=== PATIENT | male | born 1965 | race Caucasian/White ===

== ENCOUNTER 2019-04-19 08:08 | Inpatient (IN) | payer BC ==
[~2019-04-19] VITALS: Ht 177.8 cm; Wt 129.2 kg
[2019-04-19] VITALS (12 sets, daily range): BP systolic 90–107; BP diastolic 30–61
[~2019-04-19 08:08] MED LIST: ASPI81TA52 PO; CARV25TA2 PO; DABI150C PO; DIGO250T2 PO; LEVO25TA2 PO; LISI-600 PO
[2019-04-19] MEDS ORDERED: normal saline 1000ML IV soln IVB ONE (08:35)
[2019-04-19 09:24] LABS: BASOPHILS % (AUTO) 0.4 % (0-1); EOSINOPHILS # (AUTO) 0.3 X10'3 (0-0.9); EOSINOPHILS % (AUTO) 5.5 % (0-6); HEMATOCRIT 25.6 % (42.0-52.0); HEMOGLOBIN 8.9 g/dl (14.0-17.9); LYMPHOCYTES # (AUTO) 0.4 X10'3 (1.1-4.8); LYMPHOCYTES % (AUTO) 6.4 % (21-51); MEAN CORPUSCULAR HEMOGLOBIN 32.6 PG (27.0-31.0); MEAN CORPUSCULAR HGB CONC 34.7 g/dL (33.0-36.5); MEAN PLATELET VOLUME 9.7 FL (7.4-10.4); MONOCYTES # (AUTO) 0.7 X10'3 (0-0.9); MONOCYTES % (AUTO) 10.8 % (2-12); NEUTROPHILS # (AUTO) 4.9 X10'3 (1.8-7.7); NEUTROPHILS % (AUTO) 76.9 % (42-75); PLATELET COUNT 111 X10'3 (140-440); RED BLOOD COUNT 2.73 X10'6 (4.70-6.10); RED CELL DISTRIBUTION WIDTH 13.9 % (11.5-14.5); WHITE BLOOD COUNT 6.3 X10'3 (4.5-11.0)
[2019-04-19 09:48] LABS: ALANINE AMINOTRANSFERASE 90 U/L (12-78); ALBUMIN 3.7 G/DL (3.4-5.0); ALBUMIN/GLOBULIN RATIO 1.1 (1.1-1.5); ALKALINE PHOSPHATASE 71 IU/L (46-116); ANION GAP 27 (8-16); ASPARTATE AMINO TRANSFERASE 77 U/L (10-37); BILIRUBIN,TOTAL 0.6 MG/DL (0.1-1.0); CALCIUM 9.9 MG/DL (8.5-10.1); CHLORIDE 89 MMOL/L (99-107); CREATININE 16.73 MG/DL (0.60-1.10); ETHANOL < 0.010 GM/DL (0.0-0.010); GLUCOSE 126 MG/DL (70-104); PARTIAL THROMBOPLASTIN TIME 68 SECONDS (22-32); POTASSIUM 5.5 MMOL/L (3.5-5.1); SODIUM 128 MMOL/L (135-145); eGFR 3 ML/MIN
[2019-04-19 09:52] LABS: BLOOD UREA NITROGEN 218 MG/DL (7-18)
[2019-04-19 09:53] LABS: TOTAL CARBON DIOXIDE 11.6 MMOL/L (24-32)
[2019-04-19 09:55] LABS: TOTAL CELLS COUNTED 100
[2019-04-19 09:56] LABS: PLATELET ESTIMATE DECREASED
[2019-04-19] MEDS ORDERED: pantoprazole IV 80 MG in normal saline 100ml IV soln 100 ML IV ONE (10:20)
[2019-04-19 10:24] LABS: CLARITY,URINE SLIGHTLY CLOUDY (Clear); COLOR,URINE YELLOW (Yellow); GLUCOSE, URINE NEGATIVE (Neg); KETONES,URINE TRACE mg/dl (Neg); LEUKOCYTE ESTERASE ,URINE NEGATIVE (Neg); NITRITES, URINE NEGATIVE (Neg); OCCULT BLOOD,URINE LARGE (Neg); PROTEIN,URINE 30 mg/dl (Neg); UROBILINOGEN,URINE 0.2 E.U/dL (0.2-1.0)
[2019-04-19] MEDS ORDERED: pantoprazole 40 MG vial IV ONE ×2 (10:30)
[2019-04-19 10:31] LABS: UA COLLECTION TYPE URINAL
[2019-04-19 10:37] LABS: RBC,URINE 50-100 /HPF (0-2)
[2019-04-19 10:43] LABS: BACTERIA,URINE NONE SEEN /HPF (Neg); SQUAMOUS EPITHELIAL CELL,UR FEW /LPF (FEW)
[2019-04-19 10:44] LABS: AMORPHOUS URATES 2+; CAL OXALATE CRYSTALS FEW /HPF (NEGATIVE); MUCUS STRANDS FEW /LPF (Neg); WBC CLUMPS,URINE FEW /HPF (NEGATIVE)
[2019-04-19] MEDS ORDERED: pantoprazole IV 40 MG in normal saline 100ml IV soln 100 ML IV ONE (11:00)
[2019-04-19] MEDS ORDERED: desmopressin inj. 25 MCG in normal saline 100ml IV soln 100 ML IV ONE (11:20)
[2019-04-19 11:36] LABS: ABG BASE EXCESS -14.3 mmol/L (-2.0-3.0); ABG HCO3 12.1 mmol/L (22.0-26.0); ABG OXYGEN SATURATION 96.7 % (95-98); ABG PCO2 (T) 30.1 mmHg (35.0-45.0); ABG PH (T) 7.223 (7.350-7.450); ABG PO2 (T) 107.4 mmHg (83-108); ALLEN'S TEST POSITIVE; FCOHb 0.3 % (0.5-1.5); FMetHb 0.2 % (0.3-1.12); FO2Hb 96.2 % (94-100); TOTAL HEMOGLOBIN 8.4 G/dl (14.0-17.9)
[2019-04-19 12:10] LABS: OCCULT BLOOD STOOL POSITIVE (Neg)
[2019-04-19] MEDS ORDERED: sodium bicarbonate (8.4%) inj. 150 MEQ in dextrose 5%-water 1,000 ML IV SCH (12:40)
[2019-04-19] MEDS ORDERED: sodium bicarbonate (8.4%) inj. 75 MEQ in dextrose 5% water 500ml 500 ML IV SCH (12:45)
--- NOTE | 2019-04-19 12:46 | NUR ---
CALLED PHARMACY ABOUT BICARB DRIP, STATED MAKING NOW WILL BRING DOWN
[2019-04-19] MEDS ORDERED: HYDROcodone/acetaminophen 5mg/325mg tablet PO PRN (13:05)
[2019-04-19] MEDS ORDERED: bisacodyl 10mg suppository rectal RC PRN (13:05)
[2019-04-19] MEDS ORDERED: HYDROmorphone inj. 0.5 MG/0.5 ML DISP.SYRIN IV PRN (13:05)
[2019-04-19] MEDS ORDERED: diphenhydrAMINE 25mg capsule PO PRN (13:05)
[2019-04-19] MEDS ORDERED: ondansetron/PF 4mg/2ml inj IV PRN (13:05)
[2019-04-19] MEDS ORDERED: acetaminophen 325mg tablet PO PRN (13:05)
[2019-04-19] MEDS ORDERED: albumin (human) 25% 100ml IV 100 ML IV PRN (13:10)
[2019-04-19] MEDS ORDERED: epoetin 20,000 units/ml inj IV ONE (13:10)
[2019-04-19] MEDS ORDERED: heparin 1,000 units/ml 10ml inj HE ONE ×2 (13:15)
[2019-04-19 13:44] LABS: HEMOGLOBIN A1C 5.5 % (4.5-6.2)
[2019-04-19] MEDS ORDERED: fentaNYL/PF 50MCG/1 ML 2ML syringe IV PRN (13:50)
[2019-04-19] MEDS: heparin 1,000 units/ml 10ml inj ICATH ONE ×2 (13:50→20:46)
[2019-04-19] MEDS ORDERED: LIDOcaine 1%/PF 5ML 10 MG/ML VIAL SQ ONE (13:50)
--- NOTE | 2019-04-19 13:55 | NUR ---
DR FULTON CALLED AND INFORMED PTS BP 81/41. RECEIVED VO TO ADMINISTER 1L NS IV BOLUS X1 NOW. CLARIFIED BICARB ORDER, BICARB GTT TO RUN AT 150ML/HR.
[2019-04-19] MEDS ORDERED: LIDOcaine 1%/PF 5ML 10 MG/ML VIAL ONE (13:57)
[2019-04-19] MEDS ORDERED: fentaNYL/PF 50MCG/1 ML 2ML syringe ONE (13:57)
[2019-04-19] MEDS ORDERED: heparin 1,000unit/ml 10ml vial 10 ML ONE (13:57)
--- NOTE | 2019-04-19 14:10 | NUR ---
ROJAS TIPTON GIVEN REPORT AND PT BEING TAKEN TO HAVE [facility] DIALYSIS PORT PLACED. RN AWARE PT TO RECEIVE 1L NS BOLUS AND FLUID CURRENTLY BEING HUNG.
[2019-04-19] MEDS ORDERED: NORepinephrine 8mg/ 250ml NS 250 ML IV SCH (14:25)
[2019-04-19] MEDS: sodium bicarbonate (8.4%) inj. 75 MEQ in dextrose 5% water 500ml 500 ML IV SCH ×3 (15:00→22:30)
--- NOTE | 2019-04-19 15:20 | NUR ---
PT BED STATUS TO BE CHANGED TO ICU BED PER YAMILETHO DR. FULTON.
--- NOTE | 2019-04-19 16:20 | NUR ---
Patient arrived to ICU via ED gurney. Transferred to hospital bed with minimal assistance. Patient oriented to room and to call light. Monitoring initiated. Vital signs: HR 120, RR 28, 02 92% on 4L NC, BP 117/63 (81). Levophed at 0.14 mcg/kg/min. All immediate needs met at this time.
--- NOTE | 2019-04-19 18:20 | NUR ---
Patient in room ICU 2044. I have received report from michael kendrick and had the opportunity to ask questions and assume patient care.
[2019-04-19] MEDS ORDERED: CARV25TA2 PO (18:41)
[2019-04-19] MEDS ORDERED: LISI-600 PO (18:41)
[2019-04-19] MEDS ORDERED: DABI150C PO (18:41)
[2019-04-19] MEDS: docusate sod 100mg capsule PO SCH (19:03)
--- NOTE | 2019-04-19 20:00 | NUR ---
pt reports being fearful of dialysis, encouraged expression of feelings and validated his fears. educated pt on dialysis with dialysis nurse. pt verbalized understanding of feelings
--- NOTE | 2019-04-19 20:30 | NUR ---
dialysis nurse at bedside
[2019-04-19] MEDS ORDERED: dextrose 50%-water 50ml dispensing syringe IV PRN (22:45)
[2019-04-19] MEDS ORDERED: LORazepam 2 mg/ml vial IV PRN (22:45)
[2019-04-19] MEDS ORDERED: LORazepam 1 MG tablet PO PRN (22:45)
[2019-04-20] VITALS (18 sets, daily range): BP systolic 88–122; BP diastolic 41–74
[2019-04-20] MEDS: sodium bicarbonate (8.4%) inj. 75 MEQ in dextrose 5% water 500ml 500 ML IV SCH ×2 (02:19→05:48)
[2019-04-20 02:59] LABS: TOTAL PROTEIN,URINE RANDOM 124.6 MG/DL
[2019-04-20 04:28] LABS: UA EOSINOPHILS NO EOS /HPF
[2019-04-20 05:26] LABS: PARTIAL THROMBOPLASTIN TIME 54 SECONDS (22-32)
[2019-04-20 05:37] LABS: ALANINE AMINOTRANSFERASE 69 U/L (12-78); ALBUMIN/GLOBULIN RATIO 1.1 (1.1-1.5); ALKALINE PHOSPHATASE 63 IU/L (46-116); ANION GAP 13 (8-16); ASPARTATE AMINO TRANSFERASE 59 U/L (10-37); BILIRUBIN,TOTAL 0.5 MG/DL (0.1-1.0); BLOOD UREA NITROGEN 121 MG/DL (7-18); BUN/CREATININE RATIO 16.2 (5.4-32.0); CALCIUM 8.4 MG/DL (8.5-10.1); CHLORIDE 97 MMOL/L (99-107); CREATININE 7.49 MG/DL (0.60-1.10); GLUCOSE 132 MG/DL (70-104); MAGNESIUM 1.2 MG/DL (1.5-2.4); PHOSPHORUS 2.5 MG/DL (2.3-4.5); POTASSIUM 3.9 MMOL/L (3.5-5.1); SODIUM 135 MMOL/L (135-145); TOTAL PROTEIN 5.8 G/DL (6.4-8.2); eGFR 8 ML/MIN
[2019-04-20 05:39] LABS: BASOPHILS % (AUTO) 0.2 % (0-1); EOSINOPHILS # (AUTO) 0.1 X10'3 (0-0.9); EOSINOPHILS % (AUTO) 1.9 % (0-6); HEMOGLOBIN 7.4 g/dl (14.0-17.9); LYMPHOCYTES # (AUTO) 0.2 X10'3 (1.1-4.8); LYMPHOCYTES % (AUTO) 3.4 % (21-51); MEAN CORPUSCULAR HEMOGLOBIN 32.7 PG (27.0-31.0); MEAN CORPUSCULAR HGB CONC 35.8 g/dL (33.0-36.5); MEAN CORPUSCULAR VOLUME 91.2 FL (78-98); MEAN PLATELET VOLUME 8.8 FL (7.4-10.4); MONOCYTES # (AUTO) 0.6 X10'3 (0-0.9); MONOCYTES % (AUTO) 12.2 % (2-12); NEUTROPHILS # (AUTO) 4.3 X10'3 (1.8-7.7); NEUTROPHILS % (AUTO) 82.3 % (42-75); PLATELET COUNT 92 X10'3 (140-440); RED BLOOD COUNT 2.26 X10'6 (4.70-6.10); RED CELL DISTRIBUTION WIDTH 13.7 % (11.5-14.5); WHITE BLOOD COUNT 5.3 X10'3 (4.5-11.0)
[2019-04-20 05:51] LABS: HEMATOCRIT 20.6 % (42.0-52.0)
--- NOTE | 2019-04-20 06:23 | NUR ---
Report received from ROJAS Robles
[2019-04-20 06:53] LABS: NUCLEATED RED BLOOD CELLS 2 /100WBC (0-0); PLATELET ESTIMATE DECREASED; TOTAL CELLS COUNTED 100
[2019-04-20 06:54] LABS: ANISOCYTOSIS 1+; LARGE PLATELETS FEW; POLYCHROMASIA 1+
[2019-04-20 06:55] LABS: TOXIC GRANULATION 1+
[2019-04-20] MEDS: docusate sod 100mg capsule PO SCH ×2 (08:00→20:00)
[2019-04-20] MEDS: multivitamins, therapeutics tablet PO SCH (09:16)
[2019-04-20] MEDS: pantoprazole 40mg Tablet.DR PO SCH (09:16)
[2019-04-20] MEDS: thiamine 100mg tablet PO SCH (09:16)
[2019-04-20] MEDS: folic acid 1mg tablet PO SCH (09:17)
[2019-04-20] MEDS: normal saline 1000ml 1,000 ML IV SCH ×2 (09:18→22:43)
[2019-04-20 10:16] LABS: HEMOGLOBIN 7.3 g/dl (14.0-17.9); MEAN CORPUSCULAR HEMOGLOBIN 32.5 PG (27.0-31.0); MEAN CORPUSCULAR HGB CONC 35.5 g/dL (33.0-36.5); MEAN CORPUSCULAR VOLUME 91.6 FL (78-98); MEAN PLATELET VOLUME 9.7 FL (7.4-10.4); PLATELET COUNT 104 X10'3 (140-440); RED BLOOD COUNT 2.24 X10'6 (4.70-6.10); RED CELL DISTRIBUTION WIDTH 13.9 % (11.5-14.5); WHITE BLOOD COUNT 6.2 X10'3 (4.5-11.0)
[2019-04-20 10:21] LABS: HEMATOCRIT 20.6 % (42.0-52.0)
[2019-04-20 13:01] LABS: % IRON SATURATION 11 % (11-46); IRON 25 UG/DL (53-167); TOTAL IRON BINDING CAPACITY 235 UG/DL (259-388)
[2019-04-20 13:02] LABS: FERRITIN 1455 NG/ML (26-388)
--- NOTE | 2019-04-20 15:00 | NUR ---
Patient in room PCU 3012. I have received report from Leesa and had the opportunity to ask questions and assume patient care. Patient hooked up to tele, vital signs obtained and 2 RN skin check completed.
--- NOTE | 2019-04-20 15:08 | NUR ---
Transferred patient to room 3012B via wheelchair with banquet coordinator and all belongings.
[2019-04-20 15:56] LABS: HEMOGLOBIN 7.4 g/dl (14.0-17.9); MEAN CORPUSCULAR HEMOGLOBIN 32.4 PG (27.0-31.0); MEAN CORPUSCULAR HGB CONC 34.6 g/dL (33.0-36.5); MEAN CORPUSCULAR VOLUME 93.4 FL (78-98); MEAN PLATELET VOLUME 8.6 FL (7.4-10.4); PLATELET COUNT 94 X10'3 (140-440); RED BLOOD COUNT 2.29 X10'6 (4.70-6.10); WHITE BLOOD COUNT 6.5 X10'3 (4.5-11.0)
[2019-04-20 16:02] LABS: HEMATOCRIT 21.4 % (42.0-52.0)
--- NOTE | 2019-04-20 18:00 | NUR ---
Patient in room PCU 3012. I have received report from ROJAS Douglas and had the opportunity to ask questions and assume patient care.
--- NOTE | 2019-04-20 19:15 | NUR ---
Problems reprioritized. Patient report given, questions answered & plan of care reviewed with Sigrid.
[2019-04-20] MEDS: nystatin 15 GM powder TP SCH ×2 (20:00→21:00)
[2019-04-20] MEDS: dabigatran 150mg capsule PO SCH (23:01)
[2019-04-21] VITALS (20 sets, daily range): BP systolic 92–222; BP diastolic 48–192
[2019-04-21] MEDS ORDERED: amiodarone 150mg/dext, iso-os 100 ML IV ONE (04:15)
[2019-04-21] MEDS: amiodarone/D5 360MG/200ML BAG 200 ML IV SCH ×4 (04:48→21:00)
[2019-04-21] MEDS: ipratropium/albuterol 3ml nebule NEB PRN ×3 (05:04→15:50)
[2019-04-21 05:14] LABS: BASOPHILS % (AUTO) 0.4 % (0-1); EOSINOPHILS % (AUTO) 1.1 % (0-6); HEMATOCRIT 23.1 % (42.0-52.0); LYMPHOCYTES # (AUTO) 0.1 X10'3 (1.1-4.8); LYMPHOCYTES % (AUTO) 2.6 % (21-51); MEAN CORPUSCULAR HEMOGLOBIN 32.5 PG (27.0-31.0); MEAN CORPUSCULAR HGB CONC 34.6 g/dL (33.0-36.5); MEAN CORPUSCULAR VOLUME 93.9 FL (78-98); MEAN PLATELET VOLUME 8.6 FL (7.4-10.4); MONOCYTES # (AUTO) 0.1 X10'3 (0-0.9); MONOCYTES % (AUTO) 2.5 % (2-12); NEUTROPHILS # (AUTO) 3.2 X10'3 (1.8-7.7); NEUTROPHILS % (AUTO) 93.4 % (42-75); PLATELET COUNT 102 X10'3 (140-440); RED BLOOD COUNT 2.46 X10'6 (4.70-6.10); RED CELL DISTRIBUTION WIDTH 13.8 % (11.5-14.5); WHITE BLOOD COUNT 3.4 X10'3 (4.5-11.0)
[2019-04-21 05:16] LABS: PARTIAL THROMBOPLASTIN TIME 51 SECONDS (22-32)
[2019-04-21 05:28] LABS: ALANINE AMINOTRANSFERASE 69 U/L (12-78); ALBUMIN 3.4 G/DL (3.4-5.0); ALKALINE PHOSPHATASE 77 IU/L (46-116); ANION GAP 12 (8-16); ASPARTATE AMINO TRANSFERASE 62 U/L (10-37); BILIRUBIN,TOTAL 0.6 MG/DL (0.1-1.0); BLOOD UREA NITROGEN 123 MG/DL (7-18); BUN/CREATININE RATIO 39.4 (5.4-32.0); CALCIUM 7.9 MG/DL (8.5-10.1); CHLORIDE 102 MMOL/L (99-107); CREATININE 3.12 MG/DL (0.60-1.10); GLUCOSE 101 MG/DL (70-104); PHOSPHORUS 1.9 MG/DL (2.3-4.5); POTASSIUM 4.2 MMOL/L (3.5-5.1); SODIUM 143 MMOL/L (135-145); TOTAL CARBON DIOXIDE 29.1 MMOL/L (24-32); TOTAL PROTEIN 6.7 G/DL (6.4-8.2); TROPONIN I < 0.04 NG/ML (0.0-0.05); eGFR 21 ML/MIN
[2019-04-21 05:41] LABS: MAGNESIUM 0.9 MG/DL (1.5-2.4)
--- NOTE | 2019-04-21 05:41 | NUR ---
Patient appears to be withdrawling from [id number]. Ativan started. Rashaun fletcher.
[2019-04-21] MEDS ORDERED: magnesium 2GM in 50ml NS 50 ML IV ONE (05:50)
--- NOTE | 2019-04-21 06:23 | NUR ---
Problems reprioritized. Patient report given, questions answered & plan of care reviewed with ROJAS Lucas.
--- NOTE | 2019-04-21 06:30 | NUR ---
Patient in room ICU 2038. I have received report from ROJAS Matta and had the opportunity to ask questions and assume patient care. Patient sitting in chair at bedside. Patient has tremors, alert and oriented x3. Sitter at bedside. will continue to monitor.
[2019-04-21] MEDS: LORazepam 2 mg/ml vial IV PRN ×3 (06:39→12:30)
[2019-04-21 07:21] LABS: NUCLEATED RED BLOOD CELLS 8 /100WBC (0-0); TOTAL CELLS COUNTED 100
[2019-04-21 07:22] LABS: PLATELET ESTIMATE DECREASED
[2019-04-21 07:25] LABS: ROULEAUX 1+
[2019-04-21 07:26] LABS: POLYCHROMASIA 1+
[2019-04-21] MEDS: pantoprazole 40mg Tablet.DR PO SCH (07:30)
[2019-04-21] MEDS ORDERED: haloperidol 5mg tablet PO PRN (07:50)
[2019-04-21] MEDS ORDERED: LORazepam 2 mg/ml vial IV PRN (07:50)
[2019-04-21] MEDS ORDERED: sodium phosphate inj. 15 MMOL in dextrose 5%-water 150 ML IV PRN (07:50)
[2019-04-21] MEDS ORDERED: magnesium Cl slow-release 64mg tablet PO PRN (07:50)
[2019-04-21] MEDS ORDERED: potassium CL 10mEq/100ml bag 100 ML IV PRN (07:50)
[2019-04-21] MEDS ORDERED: potassium Cl 20 mEq SR tablet PO PRN ×2 (07:50)
[2019-04-21] MEDS ORDERED: sodium phosphate inj. 30 MMOL in dextrose 5%-water 250 ML IV PRN (07:50)
[2019-04-21] MEDS ORDERED: haloperidol lactate 5mg/ml inj IM PRN (07:50)
--- NOTE | 2019-04-21 07:53 | NUR ---
Spoke with Dr. Perkins via telephone, new orders to add Moderate ETOH protocol and Potassium, Mg and Phos replacement protocol.
[2019-04-21] MEDS: folic acid 1mg tablet PO SCH (08:00)
[2019-04-21] MEDS: docusate sod 100mg capsule PO SCH ×2 (08:00→20:00)
[2019-04-21] MEDS: multivitamins, therapeutics tablet PO SCH (08:00)
[2019-04-21] MEDS: thiamine 100mg tablet PO SCH (08:00)
[2019-04-21] MEDS: dabigatran 150mg capsule PO SCH ×2 (08:00→20:00)
[2019-04-21] MEDS: nystatin 15 GM powder TP SCH ×3 (08:00→21:00)
--- NOTE | 2019-04-21 08:30 | NUR ---
Patient wasn't able to take morning medications PO due to his condition changing. Unable to follow commands, and on CPAP. Primary nurse is informed.
[2019-04-21] MEDS: magnesium 4gm in 100ml NS 100 ML IV PRN (09:57)
--- NOTE | 2019-04-21 10:45 | NUR ---
Axillary temperature reported of 102.8. Patient found to be hypotensive, increase work of breathing. Patient restless, attempting to removed CPAP mask. Rapid response called.
--- NOTE | 2019-04-21 10:50 | NUR ---
Rapid response called. Patient hypotensive, and increased work of breathing.
[2019-04-21 11:10] LABS: ABG BASE EXCESS 0.2 mmol/L (-2.0-3.0); ABG HCO3 24.9 mmol/L (22.0-26.0); ABG OXYGEN SATURATION 93.8 % (95-98); ABG PCO2 (T) 40.4 mmHg (35.0-45.0); ABG PH (T) 7.407 (7.350-7.450); ABG PO2 (T) 72.8 mmHg (83-108); ALLEN'S TEST POSITIVE; FCOHb 0.1 % (0.5-1.5); FLOW 4 L/min; FMetHb 0.1 % (0.3-1.12); FO2Hb 93.6 % (94-100); TOTAL HEMOGLOBIN 7.6 G/dl (14.0-17.9)
[2019-04-21] MEDS ORDERED: furosemide 40mg/4ml inj IV ONE (11:10)
[2019-04-21] MEDS ORDERED: furosemide 40mg/4ml inj ONE (11:40)
--- NOTE | 2019-04-21 11:44 | NUR ---
Please disregard dialysis charges for 04/20. Dialysis was performed on 04/19 but posted after midnight. Addendum: 04/21/19 at 1145 by Samantha Grimes RN Amended: Links added.
--- NOTE | 2019-04-21 12:19 | NUR ---
Please disregard charges entered 04/206. The charge should have been documented on 04/19 the date of actual treatment. Addendum: 04/21/19 at 1221 by Samantha Grimes RN Amended: Links added.
[2019-04-21 12:41] LABS: ABG BASE EXCESS 4.4 mmol/L (-2.0-3.0); ABG HCO3 27.9 mmol/L (22.0-26.0); ABG OXYGEN SATURATION 98.2 % (95-98); ABG PH (T) 7.496 (7.350-7.450); ABG PO2 (T) 131.9 mmHg (83-108); ALLEN'S TEST Yes; FCOHb 0.3 % (0.5-1.5); FMetHb 0.2 % (0.3-1.12); FO2Hb 97.7 % (94-100); RESPIRATORY RATE 24 b/min; TOTAL HEMOGLOBIN 7.2 G/dl (14.0-17.9)
[2019-04-21] MEDS ORDERED: vancomycin/NS 1 GM ADD-VANTAGE 250 ML IV ONE (13:00)
[2019-04-21] MEDS ORDERED: acetaminophen 650mg rectal suppository RC PRN (13:00)
[2019-04-21] MEDS: dexmedetomidin/NS 400mcg/100ml 100 ML IV SCH (13:31)
[2019-04-21] MEDS ORDERED: midazolam 2 mg/2 ml injection ONE (13:54)
[2019-04-21] MEDS ORDERED: NORepinephrine 8mg/ 250ml NS 250 ML IV ONE (13:55)
[2019-04-21] MEDS ORDERED: MIDAZolam 5mg/ml 2ml vial IV ONE ×2 (13:55→14:15)
[2019-04-21] MEDS ORDERED: etomidate 2mg/ml inj. IV ONE (14:15)
[2019-04-21] MEDS: midazolam 100mg in NS 100ml 100 ML IV PRN (14:15)
[2019-04-21] MEDS ORDERED: rocuronium 10mg/ml inj IV ONE (14:15)
[2019-04-21] MEDS ORDERED: ipratropium/albuterol 3ml nebule NEB PRN (14:20)
[2019-04-21 14:26] LABS: ABG BASE EXCESS 0.1 mmol/L (-2.0-3.0); ABG OXYGEN SATURATION 91.1 % (95-98); ABG PCO2 (T) 49.5 mmHg (35.0-45.0); ABG PH (T) 7.339 (7.350-7.450); ABG PO2 (T) 66.5 mmHg (83-108); ALLEN'S TEST POSITIVE; FCOHb 0.3 % (0.5-1.5); FMetHb 0.2 % (0.3-1.12); FO2Hb 90.6 % (94-100); TOTAL HEMOGLOBIN 7.8 G/dl (14.0-17.9)
[2019-04-21] MEDS: normal saline 1000ml 1,000 ML IV SCH (14:35)
[2019-04-21] MEDS: FENTANYL-0.9 % NACL/PF 100 ML IV PRN ×2 (14:40→17:58)
[2019-04-21] MEDS: NORepinephrine 8mg/ 250ml NS 250 ML IV SCH (14:40)
[2019-04-21] MEDS: piperacillin/tazo 3.375gm/50ml 50 ML IV SCH (15:29)
[2019-04-21] MEDS ORDERED: methylPREDNISolone sod succ 125mg/2ml vial IV ONE (15:30)
[2019-04-21] MEDS: iron sucrose complex injection 200 MG in normal saline 100ml IV soln 100 ML IV SCH (16:22)
[2019-04-21] MEDS: ipratropium/albuterol 3ml nebule NEB SCH ×2 (19:40→23:49)
[2019-04-21] MEDS: methylPREDNISolone sod succ 125mg/2ml vial IV SCH (21:00)
[2019-04-21] MEDS ORDERED: warfarin 4mg tablet PO ONE (22:00)
[2019-04-22] VITALS (24 sets, daily range): BP systolic 103–135; BP diastolic 72–93
[2019-04-22] MEDS: piperacillin/tazo 3.375gm/50ml 50 ML IV SCH ×3 (01:12→16:59)
[2019-04-22] MEDS: dexmedetomidin/NS 400mcg/100ml 100 ML IV SCH ×3 (01:12→19:58)
[2019-04-22] MEDS: NORepinephrine 8mg/ 250ml NS 250 ML IV SCH ×3 (02:09→23:07)
[2019-04-22] MEDS: methylPREDNISolone sod succ 125mg/2ml vial IV SCH ×4 (03:00→21:12)
[2019-04-22] MEDS ORDERED: dextrose ORAL solution 15 GM/59 ML bottle PO PRN (03:10)
[2019-04-22] MEDS ORDERED: glucagon, human recombinant 1mg kit SUBCUT PRN (03:10)
[2019-04-22] MEDS: ipratropium/albuterol 3ml nebule NEB SCH ×6 (03:45→23:12)
[2019-04-22 04:06] LABS: ABG BASE EXCESS -0.7 mmol/L (-2.0-3.0); ABG HCO3 23.6 mmol/L (22.0-26.0); ABG OXYGEN SATURATION 98.5 % (95-98); ABG PCO2 (T) 38.2 mmHg (35.0-45.0); ABG PH (T) 7.411 (7.350-7.450); ABG PO2 (T) 136.7 mmHg (83-108); ALLEN'S TEST POSITIVE; FCOHb 0.3 % (0.5-1.5); FO2Hb 98.2 % (94-100); PATIENT TEMPERATURE 37.6; PEEP 5 cm H2O; RESPIRATORY RATE 18 b/min; TIDAL VOLUME 500 mL; TOTAL HEMOGLOBIN 8.7 G/dl (14.0-17.9)
[2019-04-22] MEDS: FENTANYL-0.9 % NACL/PF 100 ML IV PRN (04:20)
[2019-04-22] MEDS: normal saline 1000ml 1,000 ML IV SCH ×2 (04:20→19:56)
[2019-04-22] MEDS: amiodarone/D5 360MG/200ML BAG 200 ML IV SCH ×4 (04:29→22:41)
[2019-04-22 05:38] LABS: BASOPHILS % (AUTO) 0.1 % (0-1); EOSINOPHILS % (AUTO) 0.2 % (0-6); HEMATOCRIT 23.1 % (42.0-52.0); HEMOGLOBIN 7.8 g/dl (14.0-17.9); LYMPHOCYTES # (AUTO) 0.2 X10'3 (1.1-4.8); LYMPHOCYTES % (AUTO) 4.7 % (21-51); MEAN CORPUSCULAR HEMOGLOBIN 32.2 PG (27.0-31.0); MEAN CORPUSCULAR HGB CONC 33.7 g/dL (33.0-36.5); MEAN CORPUSCULAR VOLUME 95.6 FL (78-98); MEAN PLATELET VOLUME 8.6 FL (7.4-10.4); MONOCYTES # (AUTO) 0.3 X10'3 (0-0.9); MONOCYTES % (AUTO) 7.4 % (2-12); NEUTROPHILS # (AUTO) 3.8 X10'3 (1.8-7.7); NEUTROPHILS % (AUTO) 87.6 % (42-75); PLATELET COUNT 78 X10'3 (140-440); RED BLOOD COUNT 2.41 X10'6 (4.70-6.10); RED CELL DISTRIBUTION WIDTH 14.3 % (11.5-14.5); WHITE BLOOD COUNT 4.3 X10'3 (4.5-11.0)
[2019-04-22 05:50] LABS: PARTIAL THROMBOPLASTIN TIME 57 SECONDS (22-32)
[2019-04-22 06:04] LABS: ALANINE AMINOTRANSFERASE 69 U/L (12-78); ALBUMIN 2.6 G/DL (3.4-5.0); ALBUMIN/GLOBULIN RATIO 0.8 (1.1-1.5); ALKALINE PHOSPHATASE 64 IU/L (46-116); ANION GAP 15 (8-16); ASPARTATE AMINO TRANSFERASE 245 U/L (10-37); BILIRUBIN,TOTAL 0.8 MG/DL (0.1-1.0); BLOOD UREA NITROGEN 127 MG/DL (7-18); BUN/CREATININE RATIO 42.3 (5.4-32.0); CALCIUM 7.2 MG/DL (8.5-10.1); CHLORIDE 103 MMOL/L (99-107); GLUCOSE 207 MG/DL (70-104); MAGNESIUM 1.4 MG/DL (1.5-2.4); PHOSPHORUS 4.5 MG/DL (2.3-4.5); POTASSIUM 4.5 MMOL/L (3.5-5.1); SODIUM 141 MMOL/L (135-145); TOTAL CARBON DIOXIDE 23.3 MMOL/L (24-32); TOTAL PROTEIN 5.9 G/DL (6.4-8.2); eGFR 22 ML/MIN
[2019-04-22 06:47] LABS: NUCLEATED RED BLOOD CELLS 1 /100WBC (0-0); PLATELET ESTIMATE DECREASED; TOTAL CELLS COUNTED 100
[2019-04-22 06:48] LABS: POLYCHROMASIA 1+; ROULEAUX 1+
--- NOTE | 2019-04-22 06:50 | NUR ---
Report received from ROJAS Arteaga.
[2019-04-22] MEDS: docusate sod 100mg capsule PO SCH (08:00)
[2019-04-22] MEDS: folic acid 1mg tablet PO SCH (08:37)
[2019-04-22] MEDS: thiamine 100mg tablet PO SCH (08:38)
[2019-04-22] MEDS: multivitamins, therapeutics tablet PO SCH (08:39)
[2019-04-22] MEDS: pantoprazole 40mg Tablet.DR PO SCH (08:39)
[2019-04-22] MEDS: insulin regular, human vial - multi-dose SQ SCH ×3 (08:53→21:28)
[2019-04-22 09:49] LABS: A/G RATIO 1.1 (0.7-1.7); ALBUMIN 3.2 g/dL (2.9-4.4); BETA GLOBULIN 0.9 g/dL (0.7-1.3); GAMMA GLOBULIN 0.6 g/dL (0.4-1.8); GLOBULIN, TOTAL 2.8 g/dL (2.2-3.9); M-SPIKE Not Observed g/dL (Not Observed)
[2019-04-22] MEDS: nystatin 15 GM powder TP SCH ×3 (12:34→21:22)
[2019-04-22] MEDS: iron sucrose complex injection 200 MG in normal saline 100ml IV soln 100 ML IV SCH (12:34)
--- NOTE | 2019-04-22 14:19 | NUR ---
TF consult: Pt intubated and sedated d/t hypoxia and DTs d/t EtOH. Pt admitted with SUELLEN, possibly sepsis per , s/p 1 hemodialysis treatment with no further plans to dialyze. Pt admitted with Creatinine of 16.7 now trending down to 3. Pt potassium now WNL. LBM 04/20. Per gas appliance installer to begin TF today. TF recs below. Recommendations: 1. Continuous TF with Vital High Protein to begin at 20ml/hr, advance by 20ml q 8 hours as tolerated to goal of 85ml/hr to provide 2040ml total volume, 2040 justin, 178 g protein, 3264 mg potassium and 1713 ml free water. 2. Additional water flush 60ml q 6 hours 3. PALB q 4. Daily weights 5. bowel care as needed Addendum: 04/22/19 at 1420 by Wing Dmitry RAMIREZ Amended: Links added. Addendum: 04/22/19 at [address] agree with note
[2019-04-22] MEDS: midazolam 100mg in NS 100ml 100 ML IV PRN (14:27)
[2019-04-22] MEDS: enoxaparin 60mg/0.6ml syringe SUBCUT SCH (17:38)
[2019-04-22] MEDS ORDERED: acetaminophen 325mg tablet OGT PRN (18:01)
[2019-04-22] MEDS ORDERED: dextrose ORAL solution 15 GM/59 ML bottle OGT PRN (18:01)
[2019-04-22] MEDS ORDERED: diphenhydrAMINE 25 MG/10 ML UD oral solution OGT PRN (18:03)
[2019-04-22] MEDS ORDERED: docusate sodium 100mg/10ml UD cup OGT SCH (18:03)
[2019-04-22] MEDS ORDERED: haloperidol 5mg tablet OGT PRN (18:05)
[2019-04-22] MEDS ORDERED: POTASSIUM BICARB 20meq eff tab 20 MEQ TABLET.EFF OGT PRN ×2 (18:07)
[2019-04-22] MEDS: mineral oil/petrolatum ophthal oint EACHEYE SCH (19:57)
[2019-04-22] MEDS ORDERED: warfarin 4mg tablet OGT ONE (21:00)
[2019-04-22] MEDS: insulin glargine (Lantus) pen - multi-dose SQ SCH (21:29)
[2019-04-23] VITALS (24 sets, daily range): BP systolic 90–136; BP diastolic 58–96
[2019-04-23] MEDS: mineral oil/petrolatum ophthal oint EACHEYE SCH ×4 (02:00→20:00)
[2019-04-23] MEDS: ipratropium/albuterol 3ml nebule NEB SCH ×6 (02:59→23:10)
[2019-04-23] MEDS: insulin regular, human vial - multi-dose SQ SCH (03:50)
[2019-04-23] MEDS: methylPREDNISolone sod succ 125mg/2ml vial IV SCH ×4 (03:53→20:30)
--- NOTE | 2019-04-23 04:00 | NUR ---
Midnight Zosyn dose missed. Asked pharmacy if it could be given and retimed, but pharmacist unable to retime.
[2019-04-23 04:15] LABS: BASOPHILS % (AUTO) 0.1 % (0-1); EOSINOPHILS % (AUTO) 0.1 % (0-6); HEMATOCRIT 23.8 % (42.0-52.0); LYMPHOCYTES # (AUTO) 0.2 X10'3 (1.1-4.8); LYMPHOCYTES % (AUTO) 3.2 % (21-51); MEAN CORPUSCULAR HEMOGLOBIN 31.9 PG (27.0-31.0); MEAN CORPUSCULAR HGB CONC 33.7 g/dL (33.0-36.5); MEAN CORPUSCULAR VOLUME 94.8 FL (78-98); MEAN PLATELET VOLUME 9.3 FL (7.4-10.4); MONOCYTES # (AUTO) 0.5 X10'3 (0-0.9); MONOCYTES % (AUTO) 7.6 % (2-12); NEUTROPHILS # (AUTO) 6.3 X10'3 (1.8-7.7); PLATELET COUNT 98 X10'3 (140-440); RED BLOOD COUNT 2.51 X10'6 (4.70-6.10); RED CELL DISTRIBUTION WIDTH 14.9 % (11.5-14.5); WHITE BLOOD COUNT 7.1 X10'3 (4.5-11.0)
[2019-04-23 04:23] LABS: PARTIAL THROMBOPLASTIN TIME 53 SECONDS (22-32)
[2019-04-23 04:30] LABS: ALANINE AMINOTRANSFERASE 76 U/L (12-78); ALBUMIN 2.4 G/DL (3.4-5.0); ALBUMIN/GLOBULIN RATIO 0.7 (1.1-1.5); ALKALINE PHOSPHATASE 56 IU/L (46-116); ANION GAP 14 (8-16); ASPARTATE AMINO TRANSFERASE 187 U/L (10-37); BILIRUBIN,TOTAL 0.7 MG/DL (0.1-1.0); BLOOD UREA NITROGEN 117 MG/DL (7-18); BUN/CREATININE RATIO 46.1 (5.4-32.0); CALCIUM 6.7 MG/DL (8.5-10.1); CHLORIDE 106 MMOL/L (99-107); CREATININE 2.54 MG/DL (0.60-1.10); GLUCOSE 178 MG/DL (70-104); MAGNESIUM 1.3 MG/DL (1.5-2.4); PHOSPHORUS 3.7 MG/DL (2.3-4.5); POTASSIUM 3.9 MMOL/L (3.5-5.1); SODIUM 147 MMOL/L (135-145); TOTAL CARBON DIOXIDE 26.8 MMOL/L (24-32); TOTAL PROTEIN 5.7 G/DL (6.4-8.2); eGFR 27 ML/MIN
[2019-04-23 04:31] LABS: ABG HCO3 20.8 mmol/L (22.0-26.0); ABG OXYGEN SATURATION 97.8 % (95-98); ABG PH (T) 7.553 (7.350-7.450); ABG PO2 (T) 96.2 mmHg (83-108); ALLEN'S TEST POSITIVE; FCOHb 0.3 % (0.5-1.5); FMetHb 0.3 % (0.3-1.12); FO2Hb 97.2 % (94-100); PATIENT TEMPERATURE 36.4; RESPIRATORY RATE 18 b/min; TIDAL VOLUME 500 mL; TOTAL HEMOGLOBIN 8.6 G/dl (14.0-17.9)
[2019-04-23 04:57] LABS: NUCLEATED RED BLOOD CELLS 3 /100WBC (0-0); TOTAL CELLS COUNTED 100
[2019-04-23 04:58] LABS: HYPOCHROMASIA 1+; PLATELET ESTIMATE DECREASED; POLYCHROMASIA 1+
[2019-04-23] MEDS ORDERED: LORazepam 1 MG tablet OGT PRN ×2 (05:20→07:50)
[2019-04-23] MEDS ORDERED: LORazepam 2 mg/ml vial IV PRN ×2 (05:20→07:50)
--- NOTE | 2019-04-23 07:30 | NUR ---
Called Clinton ZURITA to notify that I was unable to keep cuff inflated well. Patient only getting every other tidal volume. Clinton ZURITA stated that the patient's cuff had blown. Called Dr. Padilla and received order to extubate patient and call ED physician if needs intubated. Extubated patient at this time and he tolerated well. Placed patient on 1 L NC and breathing well at this time. Will continue to monitor.
--- NOTE | 2019-04-23 07:41 | NUR ---
I WAS CALLED BY NURSE TO ASSESS CUFF LEAK. PT. FOUND ON CPAP. CUFF WAS NOT MAINTAINING PRESSURE. MANUALLY KEPT CUFF INFLATED WHILE NURSE CONSULTED WITH DR. MORALES. SPO2 MAINTAINED AND VOLUMES DELIVERED WHILE MANUALLY INFLATING WITH MANOMETER. DR. FULTON APPROVED EXTUBATION. PT CURRENTLY ON NC 3 LITERS PER MINUTE. PT HAS WARD AND WILL PUT ON VENTURI MASK WITH HIGH FLOW. BS COARSE, VS WNL. Addendum: 04/23/19 at 0744 by Christiano [address]on RT Amended: Links added.
[2019-04-23] MEDS: normal saline 1000ml 1,000 ML IV SCH ×2 (07:55→22:13)
[2019-04-23] MEDS: enoxaparin 60mg/0.6ml syringe SUBCUT SCH (08:00)
[2019-04-23] MEDS: dabigatran 150mg capsule PO SCH ×2 (08:00→21:53)
[2019-04-23] MEDS: piperacillin/tazo 3.375gm/50ml 50 ML IV SCH ×4 (08:13→23:42)
[2019-04-23] MEDS: thiamine inj. 100 MG, folic acid inj. 2 MG in normal saline 100ml IV soln 100 ML IV SCH (08:19)
[2019-04-23] MEDS: iron sucrose complex injection 200 MG in normal saline 100ml IV soln 100 ML IV SCH (08:54)
[2019-04-23] MEDS: amiodarone/D5 360MG/200ML BAG 200 ML IV SCH ×4 (09:24→22:57)
[2019-04-23] MEDS: NORepinephrine 8mg/ 250ml NS 250 ML IV SCH ×2 (09:36→20:05)
[2019-04-23] MEDS: MVI, adult No.4 with vit. K 10 ML in dextrose 5% water 500ml 500 ML IV SCH ×2 (10:19)
[2019-04-23] MEDS ORDERED: acetaminophen 325mg tablet PO PRN (11:50)
[2019-04-23] MEDS ORDERED: POTASSIUM BICARB 20meq eff tab 20 MEQ TABLET.EFF PO PRN ×2 (11:51→11:52)
[2019-04-23] MEDS ORDERED: dextrose ORAL solution 15 GM/59 ML bottle PO PRN (11:51)
[2019-04-23] MEDS ORDERED: diphenhydrAMINE 25 MG/10 ML UD oral solution PO PRN (11:51)
[2019-04-23] MEDS ORDERED: LORazepam 1 MG tablet PO PRN ×2 (11:54→12:14)
[2019-04-23] MEDS ORDERED: haloperidol 5mg tablet PO PRN (11:54)
[2019-04-23] MEDS ORDERED: dabigatran 150mg capsule PO ONE (12:10)
[2019-04-23] MEDS: pantoprazole 40mg Tablet.DR PO SCH (12:16)
[2019-04-23 12:18] LABS: ALANINE AMINOTRANSFERASE 73 U/L (12-78); ALBUMIN 2.4 G/DL (3.4-5.0); ALBUMIN/GLOBULIN RATIO 0.7 (1.1-1.5); ALKALINE PHOSPHATASE 62 IU/L (46-116); ANION GAP 11 (8-16); ASPARTATE AMINO TRANSFERASE 166 U/L (10-37); BILIRUBIN,TOTAL 0.7 MG/DL (0.1-1.0); BLOOD UREA NITROGEN 106 MG/DL (7-18); BUN/CREATININE RATIO 45.9 (5.4-32.0); CALCIUM 6.9 MG/DL (8.5-10.1); CHLORIDE 108 MMOL/L (99-107); CREATININE 2.31 MG/DL (0.60-1.10); GLUCOSE 201 MG/DL (70-104); MAGNESIUM 1.3 MG/DL (1.5-2.4); PHOSPHORUS 3.4 MG/DL (2.3-4.5); POTASSIUM 3.9 MMOL/L (3.5-5.1); SODIUM 145 MMOL/L (135-145); TOTAL CARBON DIOXIDE 26.5 MMOL/L (24-32); TOTAL PROTEIN 5.9 G/DL (6.4-8.2); eGFR 30 ML/MIN
--- NOTE | 2019-04-23 12:19 | NUR ---
Reassessment: Patient was extubated to Bipap, BSS completed this morning by who recommends pureed food and thin liquids. Pt was previously intubated and sedated d/t hypoxia and DTs d/t EtOH; admitted with SUELLEN, possibly sepsis per MD, s/p 1 hemodialysis treatment with no further plans to dialyze. Pt admitted with Creatinine of 16.7 now trending down to 2.54. LBM 04/20. Will continue to follow. Recommendations: 1. Continue pureed diet per ST recs 2. monitor PO intake 3. PALB q / 4. wt per rx 5. bowel care as needed Addendum: 04/23/19 at [address] Amended: Links added.
[2019-04-23] MEDS: nystatin 15 GM powder TP SCH ×3 (12:41→20:30)
[2019-04-23] MEDS: magnesium 4gm in 100ml NS 100 ML IV PRN (13:17)
[2019-04-23] MEDS: insulin Lispro (HumaLOG) vial - multi-dose SQ SCH (13:47)
[2019-04-23] MEDS: magnesium 2GM in 50ml NS 50 ML IV PRN (16:31)
--- NOTE | 2019-04-23 18:00 | NUR ---
Patient in room ICU 2038. I have received report from ROJAS Lackey and had the opportunity to ask questions and assume patient care.
--- NOTE | 2019-04-23 18:30 | NUR ---
Problems reprioritized. Patient report given, questions answered & plan of care reviewed with Gi XIE.
[2019-04-23] MEDS: docusate sodium 100mg/10ml UD cup PO SCH (20:30)
[2019-04-23] MEDS: dexmedetomidin/NS 400mcg/100ml 100 ML IV SCH (20:33)
[2019-04-23] MEDS: insulin glargine (Lantus) pen - multi-dose SQ SCH (21:58)
[2019-04-24] VITALS (24 sets, daily range): BP systolic 107–150; BP diastolic 67–115
[2019-04-24] MEDS: mineral oil/petrolatum ophthal oint EACHEYE SCH (02:00)
[2019-04-24] MEDS: ipratropium/albuterol 3ml nebule NEB SCH ×6 (03:11→23:14)
[2019-04-24] MEDS: methylPREDNISolone sod succ 125mg/2ml vial IV SCH ×3 (04:24→14:35)
[2019-04-24] MEDS: amiodarone/D5 360MG/200ML BAG 200 ML IV SCH ×2 (05:01→08:13)
[2019-04-24 05:23] LABS: PARTIAL THROMBOPLASTIN TIME 47 SECONDS (22-32)
[2019-04-24 05:29] LABS: ALANINE AMINOTRANSFERASE 66 U/L (12-78); ALBUMIN 2.4 G/DL (3.4-5.0); ALBUMIN/GLOBULIN RATIO 0.8 (1.1-1.5); ALKALINE PHOSPHATASE 67 IU/L (46-116); ANION GAP 12 (8-16); ASPARTATE AMINO TRANSFERASE 121 U/L (10-37); BILIRUBIN,TOTAL 0.7 MG/DL (0.1-1.0); BLOOD UREA NITROGEN 93 MG/DL (7-18); BUN/CREATININE RATIO 44.3 (5.4-32.0); CALCIUM 6.9 MG/DL (8.5-10.1); CHLORIDE 106 MMOL/L (99-107); GLUCOSE 168 MG/DL (70-104); MAGNESIUM 1.7 MG/DL (1.5-2.4); PHOSPHORUS 3.2 MG/DL (2.3-4.5); POTASSIUM 3.5 MMOL/L (3.5-5.1); SODIUM 144 MMOL/L (135-145); TOTAL CARBON DIOXIDE 26.1 MMOL/L (24-32); TOTAL PROTEIN 5.6 G/DL (6.4-8.2); eGFR 33 ML/MIN
[2019-04-24 05:43] LABS: BASOPHILS % (AUTO) 0.1 % (0-1); EOSINOPHILS % (AUTO) 0.1 % (0-6); HEMATOCRIT 22.7 % (42.0-52.0); HEMOGLOBIN 7.5 g/dl (14.0-17.9); LYMPHOCYTES # (AUTO) 0.3 X10'3 (1.1-4.8); LYMPHOCYTES % (AUTO) 2.7 % (21-51); MEAN CORPUSCULAR HEMOGLOBIN 31.3 PG (27.0-31.0); MEAN CORPUSCULAR HGB CONC 32.9 g/dL (33.0-36.5); MEAN CORPUSCULAR VOLUME 95.2 FL (78-98); MEAN PLATELET VOLUME 9.8 FL (7.4-10.4); MONOCYTES # (AUTO) 0.8 X10'3 (0-0.9); MONOCYTES % (AUTO) 6.3 % (2-12); NEUTROPHILS # (AUTO) 11.3 X10'3 (1.8-7.7); NEUTROPHILS % (AUTO) 90.8 % (42-75); PLATELET COUNT 118 X10'3 (140-440); RED BLOOD COUNT 2.39 X10'6 (4.70-6.10); RED CELL DISTRIBUTION WIDTH 15.1 % (11.5-14.5); WHITE BLOOD COUNT 12.4 X10'3 (4.5-11.0)
--- NOTE | 2019-04-24 06:00 | NUR ---
Patient in room ICU 2038. I have received report from ROJAS Angelo and had the opportunity to ask questions and assume patient care.
--- NOTE | 2019-04-24 06:31 | NUR ---
Problems reprioritized. Patient report given, questions answered & plan of care reviewed with Braeden Zhao.
[2019-04-24 06:53] LABS: ANISOCYTOSIS 1+; HYPOCHROMASIA 1+; NUCLEATED RED BLOOD CELLS 5 /100WBC (0-0); PLATELET ESTIMATE DECREASED; POLYCHROMASIA 1+; TOTAL CELLS COUNTED 100
--- NOTE | 2019-04-24 08:00 | NUR ---
Pt had a late tray at 08:00
[2019-04-24] MEDS: piperacillin/tazo 3.375gm/50ml 50 ML IV SCH (08:15)
[2019-04-24] MEDS: dabigatran 150mg capsule PO SCH ×2 (08:24→20:00)
[2019-04-24] MEDS: docusate sodium 100mg/10ml UD cup PO SCH ×2 (08:24→20:00)
[2019-04-24] MEDS: nystatin 15 GM powder TP SCH ×3 (08:25→21:00)
[2019-04-24] MEDS: pantoprazole 40mg Tablet.DR PO SCH (08:26)
[2019-04-24] MEDS: iron sucrose complex injection 200 MG in normal saline 100ml IV soln 100 ML IV SCH (08:26)
[2019-04-24] MEDS: thiamine inj. 100 MG, folic acid inj. 2 MG in normal saline 100ml IV soln 100 ML IV SCH (08:27)
[2019-04-24] MEDS: MVI, adult No.4 with vit. K 10 ML in dextrose 5% water 500ml 500 ML IV SCH ×2 (08:27)
--- NOTE | 2019-04-24 09:45 | NUR ---
Pt finished breakfast at 09:45.
[2019-04-24] MEDS ORDERED: VANCOMYCIN LEVEL IV ONE (10:30)
[2019-04-24] MEDS: insulin Lispro (HumaLOG) vial - multi-dose SQ SCH (10:33)
--- NOTE | 2019-04-24 11:26 | NUR ---
Called Angel Luis at Pharmacy, okay to give next dose of Vanco
[2019-04-24] MEDS: normal saline 1000ml 1,000 ML IV SCH (13:09)
--- NOTE | 2019-04-24 13:40 | NUR ---
Pt finished lunch just now. Will wait till 2 pm to administer insulin since AM insulin was delayed
--- NOTE | 2019-04-24 14:43 | NUR ---
Called Dr. Price regarding pt being tachy, wanted to know if home meds (lisinopril and coreg) can be resumed, explained those two meds were withheld due to poor rental function. Dr. Price miguel he would take care of it.
[2019-04-24] MEDS ORDERED: carVEDilol 3.125mg tablet PO ONE ×2 (17:35→17:45)
[2019-04-24] MEDS ORDERED: carVEDilol 3.125mg tablet PO SCH (17:35)
--- NOTE | 2019-04-24 17:45 | NUR ---
Problems reprioritized. Patient report given, questions answered & plan of care reviewed with ROJAS Madera.
--- NOTE | 2019-04-24 17:48 | NUR ---
Received report from ANALYTICAL TECHROJAS Zhao
--- NOTE | 2019-04-24 17:54 | NUR ---
Run Melani bhardwaj till 18:55
--- NOTE | 2019-04-24 18:11 | NUR ---
Problems reprioritized. Patient report given, questions answered & plan of care reviewed with ROJAS Monique.
--- NOTE | 2019-04-24 18:42 | NUR ---
Patient in room ICU 2038. I have received report from Sandy XIE and had the opportunity to ask questions and assume patient care.
[2019-04-24] MEDS: carVEDilol 3.125mg tablet PO SCH (20:29)
[2019-04-24] MEDS: insulin glargine (Lantus) pen - multi-dose SQ SCH (20:32)
[2019-04-24] MEDS ORDERED: vancomycin/NS 1 GM ADD-VANTAGE 250 ML IV SCH (23:00)
[2019-04-25] VITALS (24 sets, daily range): BP systolic 101–146; BP diastolic 61–103
[2019-04-25 02:33] LABS: ALBUMIN 2.7 G/DL (3.4-5.0); ANION GAP 13 (8-16); BLOOD UREA NITROGEN 81 MG/DL (7-18); CALCIUM 7.2 MG/DL (8.5-10.1); CHLORIDE 107 MMOL/L (99-107); CREATININE 1.93 MG/DL (0.60-1.10); GLUCOSE 157 MG/DL (70-104); POTASSIUM 3.4 MMOL/L (3.5-5.1); SODIUM 144 MMOL/L (135-145); TOTAL CARBON DIOXIDE 24.5 MMOL/L (24-32); eGFR 37 ML/MIN
[2019-04-25 02:40] LABS: BASOPHILS % (AUTO) 0 % (0-1); EOSINOPHILS % (AUTO) 0 % (0-6); HEMATOCRIT 24.9 % (42.0-52.0); HEMOGLOBIN 8.1 g/dl (14.0-17.9); LYMPHOCYTES % (AUTO) 7.4 % (21-51); MEAN CORPUSCULAR HEMOGLOBIN 31.3 PG (27.0-31.0); MEAN CORPUSCULAR HGB CONC 32.5 g/dL (33.0-36.5); MEAN CORPUSCULAR VOLUME 96.3 FL (78-98); MEAN PLATELET VOLUME 9.7 FL (7.4-10.4); MONOCYTES # (AUTO) 0.9 X10'3 (0-0.9); MONOCYTES % (AUTO) 6.8 % (2-12); NEUTROPHILS # (AUTO) 11.9 X10'3 (1.8-7.7); NEUTROPHILS % (AUTO) 85.8 % (42-75); PLATELET COUNT 138 X10'3 (140-440); RED BLOOD COUNT 2.59 X10'6 (4.70-6.10); RED CELL DISTRIBUTION WIDTH 15.1 % (11.5-14.5); WHITE BLOOD COUNT 13.9 X10'3 (4.5-11.0)
[2019-04-25] MEDS: ipratropium/albuterol 3ml nebule NEB SCH ×6 (03:02→23:03)
[2019-04-25 03:48] LABS: ANISOCYTOSIS 1+; NUCLEATED RED BLOOD CELLS 8 /100WBC (0-0); PLATELET ESTIMATE DECREASED; POLYCHROMASIA 1+; TOTAL CELLS COUNTED 100
[2019-04-25] MEDS ORDERED: LORazepam 2 mg/ml vial IV PRN ×2 (05:20→07:50)
[2019-04-25] MEDS ORDERED: LORazepam 1 MG tablet PO PRN ×2 (05:20→07:50)
--- NOTE | 2019-04-25 06:30 | NUR ---
Patient in room ICU 2038. I have received report from ROJAS Cordova and had the opportunity to ask questions and assume patient care. Patient up to bedside commode, HR in 130s-150s, a-fib w/RVR, otherwise VSS, no acute distress, will continue to monitor
[2019-04-25] MEDS: docusate sodium 100mg/10ml UD cup PO SCH ×2 (08:00→20:00)
[2019-04-25] MEDS: dabigatran 150mg capsule PO SCH ×2 (08:17→19:45)
[2019-04-25] MEDS: carVEDilol 3.125mg tablet PO SCH ×2 (08:17→19:46)
[2019-04-25] MEDS: iron sucrose complex injection 200 MG in normal saline 100ml IV soln 100 ML IV SCH (08:17)
[2019-04-25] MEDS: nystatin 15 GM powder TP SCH ×3 (08:17→21:29)
[2019-04-25] MEDS: pantoprazole 40mg Tablet.DR PO SCH (08:17)
--- NOTE | 2019-04-25 09:00 | NUR ---
Patient HR spikes to 180s when he gets up to the bedside commode, patient states he does not feel more short of breath than normal during the spike. K is low but no replacement ordered, will inform MD.
[2019-04-25] MEDS: insulin Lispro (HumaLOG) vial - multi-dose SQ SCH (09:31)
--- NOTE | 2019-04-25 09:53 | NUR ---
informed Dr. Price about patient's high heart rates and low K with no replacement orders, he stated he will look at the chart before determining new orders.
[2019-04-25] MEDS ORDERED: potassium Cl 20 mEq SR tablet PO STA (12:19)
[2019-04-25] MEDS: amiodarone 200mg tablet PO SCH (16:04)
--- NOTE | 2019-04-25 16:06 | NUR ---
PATIENT HR MORE FREQUENTLY EXCEEDING 150 WITH MULTIPLE RUNS OF 5-7 BEAT V-TACH AND MULTIFOCAL PVCS. SPOKE WITH CRN, NEW ORDER FOR AMIODARONE 200MG PO HAD BEEN PUT IN TO START TONIGHT, GAVE IT EARLY, WILL CONTINUE TO MONITOR THE PATIENT AND INFORM MD IF FURTHER INTERVENTION IS REQUIRED
[2019-04-25] MEDS ORDERED: carVEDilol 3.125mg tablet PO SCH (16:55)
--- NOTE | 2019-04-25 18:24 | NUR ---
Problems reprioritized. Patient report given, questions answered & plan of care reviewed with ROJAS Monique.
--- NOTE | 2019-04-25 18:32 | NUR ---
Patient in room ICU 2038. I have received report from Leticia XIE and had the opportunity to ask questions and assume patient care.
[2019-04-25] MEDS: insulin glargine (Lantus) pen - multi-dose SQ SCH (21:00)
[2019-04-26] VITALS (23 sets, daily range): BP systolic 87–127; BP diastolic 51–92
--- NOTE | 2019-04-26 02:16 | NUR ---
Pt unable to sleep, complains of discomfort in abdomen and slight nausea, pt offered pain medication and antiemetic, pt refused both, pt adamant about no more medications at this time. Pt was given a snack, and educated about medication indications.
[2019-04-26] MEDS: ipratropium/albuterol 3ml nebule NEB SCH ×4 (03:00→15:00)
[2019-04-26 05:27] LABS: BASOPHILS % (AUTO) 0.1 % (0-1); EOSINOPHILS % (AUTO) 0.2 % (0-6); HEMATOCRIT 23.1 % (42.0-52.0); HEMOGLOBIN 7.7 g/dl (14.0-17.9); LYMPHOCYTES # (AUTO) 0.7 X10'3 (1.1-4.8); LYMPHOCYTES % (AUTO) 6.4 % (21-51); MEAN CORPUSCULAR HEMOGLOBIN 32.1 PG (27.0-31.0); MEAN CORPUSCULAR HGB CONC 33.4 g/dL (33.0-36.5); MEAN CORPUSCULAR VOLUME 96.1 FL (78-98); MEAN PLATELET VOLUME 9.4 FL (7.4-10.4); MONOCYTES # (AUTO) 0.9 X10'3 (0-0.9); MONOCYTES % (AUTO) 8.4 % (2-12); NEUTROPHILS % (AUTO) 84.9 % (42-75); PLATELET COUNT 120 X10'3 (140-440); RED CELL DISTRIBUTION WIDTH 15.3 % (11.5-14.5); WHITE BLOOD COUNT 10.6 X10'3 (4.5-11.0)
--- NOTE | 2019-04-26 06:00 | NUR ---
Patient in room ICU 2038. I have received report from Kayden XIE and had the opportunity to ask questions and assume patient care. Patient resting in bed, HR 120s, afib RVR, with possible runs on vtach reported. Will continue to monitor.
[2019-04-26 06:03] LABS: ALBUMIN 2.6 G/DL (3.4-5.0); ANION GAP 13 (8-16); BLOOD UREA NITROGEN 62 MG/DL (7-18); BUN/CREATININE RATIO 42.8 (5.4-32.0); CALCIUM 7.6 MG/DL (8.5-10.1); CHLORIDE 111 MMOL/L (99-107); CREATININE 1.45 MG/DL (0.60-1.10); GLUCOSE 109 MG/DL (70-104); POTASSIUM 3.4 MMOL/L (3.5-5.1); SODIUM 149 MMOL/L (135-145); TOTAL CARBON DIOXIDE 24.8 MMOL/L (24-32); eGFR 51 ML/MIN
[2019-04-26 06:21] LABS: ANISOCYTOSIS 1+; NUCLEATED RED BLOOD CELLS 2 /100WBC (0-0); PLATELET ESTIMATE DECREASED; POLYCHROMASIA FEW; TOTAL CELLS COUNTED 100
[2019-04-26] MEDS: iron sucrose complex injection 200 MG in normal saline 100ml IV soln 100 ML IV SCH (07:34)
[2019-04-26] MEDS: docusate sodium 100mg/10ml UD cup PO SCH ×2 (07:34→20:00)
[2019-04-26] MEDS: pantoprazole 40mg Tablet.DR PO SCH (07:34)
[2019-04-26] MEDS: nystatin 15 GM powder TP SCH ×3 (07:35→21:19)
[2019-04-26] MEDS: carVEDilol 3.125mg tablet PO SCH (07:35)
[2019-04-26] MEDS: dabigatran 150mg capsule PO SCH ×2 (07:35→20:00)
[2019-04-26] MEDS: amiodarone 200mg tablet PO SCH (07:35)
[2019-04-26] MEDS ORDERED: carVEDilol 12.5mg tablet PO SCH (09:05)
--- NOTE | 2019-04-26 09:15 | NUR ---
Spoke with Dr. Becerril regarding patient's heart rate and rhythm, being afib RVR and asymptomatic v-tach with rate up to 180s. New order obtained to increase Coreg. Will continue to monitor.
[2019-04-26] MEDS ORDERED: VANCOMYCIN LEVEL IV ONE (10:30)
--- NOTE | 2019-04-26 11:17 | NUR ---
Patient c/o nausea but refusing any medications at this time. Patient sitting at the bedside, will continue to monitor. Patient asking for a drink with carbonation, faxed down for diet rootbeer. Will continue to monitor.
[2019-04-26] MEDS ORDERED: potassium Cl 20 mEq SR tablet PO STA (12:43)
--- NOTE | 2019-04-26 12:59 | NUR ---
Spoke with Argelia Vicente, who is putting new orders in at this time. Will continue to monitor.
[2019-04-26 13:25] LABS: MAGNESIUM 1.1 MG/DL (1.5-2.4)
[2019-04-26] MEDS: magnesium 2GM in 50ml NS 50 ML IV PRN (13:34)
--- NOTE | 2019-04-26 13:56 | NUR ---
Reassessment: PO intake improved to 75-100% PO intake of carb controlled diet. Magnesium lab is low, is receiving IV replacement. Pt was previously intubated and sedated d/t hypoxia and DTs d/t EtOH; admitted with SUELLEN, possibly sepsis per , s/p 1 hemodialysis treatment with no further plans to dialyze. Will continue to follow. Recommendations: 1. Continue carb controlled diet 2. wt per rx 5. bowel care as needed Addendum: 04/26/19 at [address] Amended: Links added.
--- NOTE | 2019-04-26 18:00 | NUR ---
Patient in room ICU 2038. I have received report from ROJAS Lucas and had the opportunity to ask questions and assume patient care..
--- NOTE | 2019-04-26 18:34 | NUR ---
Problems reprioritized. Patient report given, questions answered & plan of care reviewed with Sigrid XIE. Patient astable at transfer of care.
[2019-04-26] MEDS: levalbuterol 0.63mg/3ml nebule IH SCH ×2 (20:00→22:52)
[2019-04-26] MEDS ORDERED: carVEDilol 3.125mg tablet PO SCH (20:00)
[2019-04-26] MEDS: insulin glargine (Lantus) pen - multi-dose SQ SCH (21:00)
--- NOTE | 2019-04-26 21:12 | NUR ---
2038 Moris Stallings: He states he is willing to try the new medication for his breathing tx. Thanks, Sigrid [phone]
--- NOTE | 2019-04-26 21:13 | NUR ---
Patient is extremely anxious and resistive to care, with some education he is compliant but he is not happy about it. He is refusing his spo2 sat monitor.
[2019-04-26] MEDS: carVEDilol 12.5mg tablet PO SCH (21:27)
--- NOTE | 2019-04-26 22:31 | NUR ---
Pt refusing O2 sat. Addendum: 04/26/19 at 2232 by Sigrid Adam RN Amended: Links added.
[2019-04-27] VITALS (22 sets, daily range): BP systolic 86–136; BP diastolic 45–96
[2019-04-27] MEDS: levalbuterol 0.63mg/3ml nebule IH SCH ×6 (02:27→23:23)
[2019-04-27 02:39] LABS: BASOPHILS % (AUTO) 0 % (0-1); EOSINOPHILS # (AUTO) 0.2 X10'3 (0-0.9); EOSINOPHILS % (AUTO) 2.3 % (0-6); LYMPHOCYTES # (AUTO) 0.4 X10'3 (1.1-4.8); LYMPHOCYTES % (AUTO) 6.4 % (21-51); MEAN CORPUSCULAR HEMOGLOBIN 31.7 PG (27.0-31.0); MEAN CORPUSCULAR HGB CONC 32.6 g/dL (33.0-36.5); MEAN CORPUSCULAR VOLUME 97.3 FL (78-98); MEAN PLATELET VOLUME 9.6 FL (7.4-10.4); MONOCYTES # (AUTO) 0.5 X10'3 (0-0.9); MONOCYTES % (AUTO) 6.9 % (2-12); NEUTROPHILS # (AUTO) 5.8 X10'3 (1.8-7.7); NEUTROPHILS % (AUTO) 84.4 % (42-75); PLATELET COUNT 105 X10'3 (140-440); RED BLOOD COUNT 2.22 X10'6 (4.70-6.10); WHITE BLOOD COUNT 6.8 X10'3 (4.5-11.0)
[2019-04-27 03:01] LABS: ALANINE AMINOTRANSFERASE 55 U/L (12-78); ALBUMIN 2.4 G/DL (3.4-5.0); ALBUMIN/GLOBULIN RATIO 0.8 (1.1-1.5); ALKALINE PHOSPHATASE 60 IU/L (46-116); ANION GAP 6 (8-16); ASPARTATE AMINO TRANSFERASE 72 U/L (10-37); BILIRUBIN,TOTAL 0.8 MG/DL (0.1-1.0); BLOOD UREA NITROGEN 49 MG/DL (7-18); BUN/CREATININE RATIO 35.8 (5.4-32.0); CALCIUM 7.5 MG/DL (8.5-10.1); CHLORIDE 109 MMOL/L (99-107); CREATININE 1.37 MG/DL (0.60-1.10); GLUCOSE 90 MG/DL (70-104); MAGNESIUM 1.2 MG/DL (1.5-2.4); POTASSIUM 3.4 MMOL/L (3.5-5.1); SODIUM 145 MMOL/L (135-145); TOTAL PROTEIN 5.4 G/DL (6.4-8.2); eGFR 55 ML/MIN
[2019-04-27] MEDS: magnesium 2GM in 50ml NS 50 ML IV PRN (03:08)
[2019-04-27 03:10] LABS: HEMATOCRIT 21.6 % (42.0-52.0)
[2019-04-27 05:54] LABS: NUCLEATED RED BLOOD CELLS 2 /100WBC (0-0); TOTAL CELLS COUNTED 100
[2019-04-27 05:55] LABS: ANISOCYTOSIS 1+; LARGE PLATELETS FEW; PLATELET ESTIMATE DECREASED
[2019-04-27 05:56] LABS: MONOCYTES % (MANUAL) 50 % (2-12); NEUTROPHILS % (MANUAL) 90 % (42-75)
[2019-04-27] MEDS ORDERED: potassium Cl 20mEq/100mL bag 100 ML IV PRN (06:05)
[2019-04-27] MEDS ORDERED: potassium Cl 20 mEq SR tablet PO PRN (06:05)
[2019-04-27] MEDS ORDERED: potassium CL 10mEq/100ml bag 100 ML IV PRN (06:05)
--- NOTE | 2019-04-27 06:10 | NUR ---
Problems reprioritized. Patient report given, questions answered & plan of care reviewed with Braeden Yun.
[2019-04-27] MEDS: docusate sodium 100mg/10ml UD cup PO SCH ×2 (07:40→20:00)
[2019-04-27] MEDS: dabigatran 150mg capsule PO SCH ×2 (08:44→20:09)
[2019-04-27] MEDS: pantoprazole 40mg Tablet.DR PO SCH (08:44)
[2019-04-27] MEDS: nystatin 15 GM powder TP SCH ×3 (08:44→20:04)
[2019-04-27] MEDS: carVEDilol 12.5mg tablet PO SCH ×2 (08:45→20:00)
[2019-04-27] MEDS: iron sucrose complex injection 200 MG in normal saline 100ml IV soln 100 ML IV SCH (08:46)
[2019-04-27] MEDS: potassium Cl 20 mEq SR tablet PO PRN ×3 (08:59→20:18)
--- NOTE | 2019-04-27 10:23 | NUR ---
Report received from off going RN.
[2019-04-27 10:36] LABS: HEMATOCRIT 25.2 % (42.0-52.0); HEMOGLOBIN 8.4 g/dl (14.0-17.9); MEAN CORPUSCULAR HEMOGLOBIN 32.1 PG (27.0-31.0); MEAN CORPUSCULAR HGB CONC 33.4 g/dL (33.0-36.5); MEAN CORPUSCULAR VOLUME 96.1 FL (78-98); MEAN PLATELET VOLUME 9.2 FL (7.4-10.4); PLATELET COUNT 118 X10'3 (140-440); RED BLOOD COUNT 2.62 X10'6 (4.70-6.10); WHITE BLOOD COUNT 8.3 X10'3 (4.5-11.0)
--- NOTE | 2019-04-27 13:10 | NUR ---
PRESSURE ULCER EDUCATION: DEFINITION: A pressure ulcer is an area of skin that breaks down when you stay in one position too long. The constant pressure against the skin reduces the blood flow to that area and the affected tissue dies. CAUSES: "Being bedridden or in a wheelchair "Fragile skin "Having a chronic condition, such as diabetes or vascular disease "Inability to move certain parts of your body without assistance "Older age "Incontinence of urine or stool SYMPTOMS: "A reddened area that DOES NOT turn white when pressed on - this can be the beginning of a pressure ulcer "A blister, deep sore or a crater - these can be advanced pressure ulcers FIRST AID: "Relieve the pressure on this area "Keep the area clean and dry "Call your primary doctor if you see any of the above symptoms "DO NOT massage the area "DO NOT use a donut shaped or ring shaped pillow- these actually interfere with the blood flow and cause complications PREVENTION: "Check for pressure ulcers everyday "Change position at least every two hours to relieve pressure "Use items that help relieve pressure- pillows, sheepskin, foam padding, and powders. "Keep skin clean and dry "Eat healthy well balanced meals "Exercise daily IF YOU SEE ANY OF THESE SYMPTOMS WHILE IN THE HOSPITAL - TELL YOUR NURSE IMMEDIATELY. IF YOU SEE ANY OF THESE SYMPTOMS WHILE AT HOME OR HAVE ANY QUESTIONS OR CONCERNS ABOUT PRESSURE ULCERS - CALL YOUR PRIMARY DOCTOR IMMEDIATELY. Addendum: 04/27/19 at 1311 by Santa Hoskins RN Amended: Links added.
--- NOTE | 2019-04-27 14:48 | NUR ---
Received report from ICU nurse Armand XIE.
--- NOTE | 2019-04-27 15:41 | NUR ---
Patient arrived to room 350B, VSS. Patient oriented to room, call light, bed controls.
--- NOTE | 2019-04-27 18:12 | NUR ---
Problems reprioritized. Patient report given, questions answered & plan of care reviewed with Dante XIE.
[2019-04-27] MEDS: insulin glargine (Lantus) pen - multi-dose SQ SCH (21:00)
[2019-04-28] VITALS: BP 123/73
[2019-04-28 05:48] LABS: MAGNESIUM 1.3 MG/DL (1.5-2.4); POTASSIUM 4.1 MMOL/L (3.5-5.1)
--- NOTE | 2019-04-28 06:05 | NUR ---
Patient in room KRISTINE 350. I have received report from Dante XIE and had the opportunity to ask questions and assume patient care.
--- NOTE | 2019-04-28 06:20 | NUR ---
Problems reprioritized. Patient report given, questions answered & plan of care reviewed with VADIM. Addendum: 04/28/19 at 0621 by Rudolph Palomares RN Amended: Links added.
[2019-04-28] MEDS: levalbuterol 0.63mg/3ml nebule IH SCH ×6 (07:03→23:25)
[2019-04-28 07:19] VITALS: BP 104/74
[2019-04-28] MEDS: docusate sodium 100mg/10ml UD cup PO SCH ×3 (08:00→20:08)
[2019-04-28] MEDS: dabigatran 150mg capsule PO SCH (08:42)
[2019-04-28] MEDS: carVEDilol 12.5mg tablet PO SCH ×2 (08:42→20:03)
[2019-04-28] MEDS: nystatin 15 GM powder TP SCH ×3 (08:42→20:02)
[2019-04-28] MEDS: iron sucrose complex injection 200 MG in normal saline 100ml IV soln 100 ML IV SCH (08:42)
[2019-04-28] MEDS: pantoprazole 40mg Tablet.DR PO SCH (08:42)
[2019-04-28] MEDS: magnesium Cl slow-release 64mg tablet PO PRN ×2 (10:21→23:33)
[2019-04-28 10:34] LABS: BASOPHILS % (AUTO) 0.1 % (0-1); EOSINOPHILS # (AUTO) 0.2 X10'3 (0-0.9); EOSINOPHILS % (AUTO) 2.6 % (0-6); HEMATOCRIT 25.8 % (42.0-52.0); HEMOGLOBIN 8.5 g/dl (14.0-17.9); LYMPHOCYTES # (AUTO) 0.5 X10'3 (1.1-4.8); LYMPHOCYTES % (AUTO) 6.4 % (21-51); MEAN CORPUSCULAR HEMOGLOBIN 31.9 PG (27.0-31.0); MEAN CORPUSCULAR HGB CONC 33.1 g/dL (33.0-36.5); MEAN CORPUSCULAR VOLUME 96.4 FL (78-98); MONOCYTES # (AUTO) 0.4 X10'3 (0-0.9); MONOCYTES % (AUTO) 5.4 % (2-12); NEUTROPHILS # (AUTO) 6.6 X10'3 (1.8-7.7); NEUTROPHILS % (AUTO) 85.5 % (42-75); PLATELET COUNT 118 X10'3 (140-440); RED BLOOD COUNT 2.67 X10'6 (4.70-6.10); RED CELL DISTRIBUTION WIDTH 17.1 % (11.5-14.5); WHITE BLOOD COUNT 7.7 X10'3 (4.5-11.0)
[2019-04-28 10:46] LABS: ALANINE AMINOTRANSFERASE 52 U/L (12-78); ALBUMIN 2.6 G/DL (3.4-5.0); ALBUMIN/GLOBULIN RATIO 0.8 (1.1-1.5); ALKALINE PHOSPHATASE 75 IU/L (46-116); ANION GAP 8 (8-16); ASPARTATE AMINO TRANSFERASE 67 U/L (10-37); BLOOD UREA NITROGEN 38 MG/DL (7-18); BUN/CREATININE RATIO 28.8 (5.4-32.0); CALCIUM 8.3 MG/DL (8.5-10.1); CHLORIDE 107 MMOL/L (99-107); CREATININE 1.32 MG/DL (0.60-1.10); GLUCOSE 124 MG/DL (70-104); PHOSPHORUS 3.1 MG/DL (2.3-4.5); POTASSIUM 3.9 MMOL/L (3.5-5.1); SODIUM 141 MMOL/L (135-145); TOTAL CARBON DIOXIDE 26.3 MMOL/L (24-32); eGFR 57 ML/MIN
[2019-04-28 11:14] VITALS: BP 113/64
--- NOTE | 2019-04-28 18:30 | NUR ---
Problems reprioritized. Patient report given, questions answered & plan of care reviewed with Shaneka XIE and Mayda RN.
[2019-04-28 19:46] VITALS: BP 105/52
[2019-04-28] MEDS ORDERED: magnesium Cl slow-release 64mg tablet PO SCH (20:00)
[2019-04-28] MEDS: insulin glargine (Lantus) pen - multi-dose SQ SCH (21:00)
[2019-04-28 21:09] LABS: HIV ANTIBODY 1&2 RAPID NON-REACTIVE (Neg)
[2019-04-29] VITALS (14 sets, daily range): BP systolic 96–152; BP diastolic 51–89
[2019-04-29] MEDS: normal saline 1000ml 1,000 ML IV SCH ×3 (01:45→21:25)
[2019-04-29] MEDS: levalbuterol 0.63mg/3ml nebule IH SCH ×6 (03:21→23:33)
[2019-04-29 05:27] LABS: BASOPHILS % (AUTO) 0.1 % (0-1); EOSINOPHILS # (AUTO) 0.3 X10'3 (0-0.9); EOSINOPHILS % (AUTO) 4.3 % (0-6); HEMATOCRIT 24.1 % (42.0-52.0); HEMOGLOBIN 8.1 g/dl (14.0-17.9); LYMPHOCYTES # (AUTO) 0.5 X10'3 (1.1-4.8); LYMPHOCYTES % (AUTO) 8.3 % (21-51); MEAN CORPUSCULAR HEMOGLOBIN 32.3 PG (27.0-31.0); MEAN CORPUSCULAR HGB CONC 33.4 g/dL (33.0-36.5); MEAN CORPUSCULAR VOLUME 96.6 FL (78-98); MEAN PLATELET VOLUME 9.1 FL (7.4-10.4); MONOCYTES # (AUTO) 0.4 X10'3 (0-0.9); MONOCYTES % (AUTO) 6.8 % (2-12); NEUTROPHILS # (AUTO) 4.9 X10'3 (1.8-7.7); NEUTROPHILS % (AUTO) 80.5 % (42-75); PLATELET COUNT 102 X10'3 (140-440); RED CELL DISTRIBUTION WIDTH 16.8 % (11.5-14.5); WHITE BLOOD COUNT 6.1 X10'3 (4.5-11.0)
[2019-04-29 05:57] LABS: ALANINE AMINOTRANSFERASE 43 U/L (12-78); ALBUMIN 2.4 G/DL (3.4-5.0); ALBUMIN/GLOBULIN RATIO 0.7 (1.1-1.5); ALKALINE PHOSPHATASE 64 IU/L (46-116); ANION GAP 7 (8-16); ASPARTATE AMINO TRANSFERASE 53 U/L (10-37); BLOOD UREA NITROGEN 31 MG/DL (7-18); BUN/CREATININE RATIO 26.3 (5.4-32.0); CALCIUM 8.2 MG/DL (8.5-10.1); CHLORIDE 108 MMOL/L (99-107); CREATININE 1.18 MG/DL (0.60-1.10); GLUCOSE 99 MG/DL (70-104); MAGNESIUM 1.2 MG/DL (1.5-2.4); PHOSPHORUS 3.5 MG/DL (2.3-4.5); POTASSIUM 3.9 MMOL/L (3.5-5.1); SODIUM 139 MMOL/L (135-145); TOTAL CARBON DIOXIDE 24.2 MMOL/L (24-32); TOTAL PROTEIN 5.8 G/DL (6.4-8.2); eGFR 65 ML/MIN
--- NOTE | 2019-04-29 06:29 | NUR ---
Problems reprioritized. Patient report given, questions answered & plan of care reviewed with Daly XIE and Beverly XIE.
--- NOTE | 2019-04-29 06:32 | NUR ---
Patient in room KRISTINE 350. I have received report from Mayda XIE orientee and Shaneka XIE and had the opportunity to ask questions and assume patient care.
[2019-04-29] MEDS: docusate sodium 100mg/10ml UD cup PO SCH ×2 (08:00→20:00)
--- NOTE | 2019-04-29 08:42 | NUR ---
Patient refused SVN tx @ this time. No Shortness of breath noted. sitting up nad, states tx doesnt help Addendum: 04/29/19 at 0843 by Sherrell Turner RT Amended: Links added.
[2019-04-29] MEDS: pantoprazole 40mg Tablet.DR PO SCH (09:14)
[2019-04-29] MEDS: iron sucrose complex injection 200 MG in normal saline 100ml IV soln 100 ML IV SCH (09:15)
[2019-04-29] MEDS: carVEDilol 12.5mg tablet PO SCH ×2 (09:15→20:58)
[2019-04-29] MEDS: nystatin 15 GM powder TP SCH ×3 (09:17→21:00)
[2019-04-29] MEDS ORDERED: magnesium 4gm in 100ml NS 100 ML IV PRN (11:00)
[2019-04-29] MEDS: magnesium 2GM in 50ml NS 50 ML IV PRN (11:15)
[2019-04-29] MEDS ORDERED: LIDOcaine Viscous 15ml cup ONE (13:34)
[2019-04-29] MEDS ORDERED: MIDAZolam 5mg/5ml vial ONE (13:34)
[2019-04-29] MEDS ORDERED: fentaNYL/PF 50MCG/1 ML 2ML syringe ONE (13:34)
--- NOTE | 2019-04-29 14:27 | NUR ---
Reassessment: Pt continues with 75-100% PO intake on CHO controlled diet meeting nutrient needs. Respiratory failure and ARF/ATN resolved and pt off HD per MD notes. Pt pending EGD today for GIB per MD notes and diet has been changed to clear liquid. LBM 2/. Will continue to follow and monitor need for nutrition intervention. Recommendations: 1. Advance to carb controlled diet as medically indicated 2. Monitor need for ONS 3. Wt per rx 4. Bowel care as needed Addendum: 04/29/19 at [address] Amended: Links added.
--- NOTE | 2019-04-29 18:47 | NUR ---
Problems reprioritized. Patient report given, questions answered & plan of care reviewed with Mayda XIE orientee and Britta XIE.
[2019-04-29] MEDS: insulin glargine (Lantus) pen - multi-dose SQ SCH (21:00)
[2019-04-30] VITALS: BP 100/49
[2019-04-30] MEDS: levalbuterol 0.63mg/3ml nebule IH SCH ×2 (03:38→07:35)
--- NOTE | 2019-04-30 06:32 | NUR ---
I have reviewed and agree with all interventions, assessments performed and documented by ROJAS Ohara. Problems reprioritized. Patient report given, questions answered & plan of care reviewed with ROJAS Mcgowan.
--- NOTE | 2019-04-30 06:34 | NUR ---
Problems reprioritized. Patient report given, questions answered & plan of care reviewed with Roslyn XIE.
--- NOTE | 2019-04-30 07:08 | NUR ---
Patient in room KRISTINE 350. I have received report from Uzair Cortez had the opportunity to ask questions and assume patient care.
[2019-04-30 08:00] VITALS: BP 140/62
[2019-04-30] MEDS: docusate sodium 100mg/10ml UD cup PO SCH (08:00)
[2019-04-30] MEDS: pantoprazole 40mg Tablet.DR PO SCH (08:31)
[2019-04-30] MEDS: carVEDilol 12.5mg tablet PO SCH (08:32)
[2019-04-30] MEDS: nystatin 15 GM powder TP SCH (08:33)
[2019-04-30] MEDS: iron sucrose complex injection 200 MG in normal saline 100ml IV soln 100 ML IV SCH (08:35)
[2019-04-30 08:44] LABS: BASOPHILS % (AUTO) 0.2 % (0-1); EOSINOPHILS # (AUTO) 0.2 X10'3 (0-0.9); EOSINOPHILS % (AUTO) 4.6 % (0-6); HEMATOCRIT 26.1 % (42.0-52.0); HEMOGLOBIN 8.6 g/dl (14.0-17.9); LYMPHOCYTES # (AUTO) 0.5 X10'3 (1.1-4.8); LYMPHOCYTES % (AUTO) 9.3 % (21-51); MEAN CORPUSCULAR HEMOGLOBIN 31.9 PG (27.0-31.0); MEAN CORPUSCULAR HGB CONC 33.1 g/dL (33.0-36.5); MEAN CORPUSCULAR VOLUME 96.5 FL (78-98); MEAN PLATELET VOLUME 9.5 FL (7.4-10.4); MONOCYTES # (AUTO) 0.5 X10'3 (0-0.9); MONOCYTES % (AUTO) 9.4 % (2-12); NEUTROPHILS # (AUTO) 4.1 X10'3 (1.8-7.7); NEUTROPHILS % (AUTO) 76.5 % (42-75); PLATELET COUNT 124 X10'3 (140-440); RED CELL DISTRIBUTION WIDTH 17.1 % (11.5-14.5); WHITE BLOOD COUNT 5.3 X10'3 (4.5-11.0)
[2019-04-30] MEDS: magnesium Cl slow-release 64mg tablet PO PRN (08:47)
[2019-04-30 08:57] LABS: ALANINE AMINOTRANSFERASE 44 U/L (12-78); ALBUMIN 2.4 G/DL (3.4-5.0); ALBUMIN/GLOBULIN RATIO 0.6 (1.1-1.5); ALKALINE PHOSPHATASE 70 IU/L (46-116); ANION GAP 6 (8-16); ASPARTATE AMINO TRANSFERASE 52 U/L (10-37); BLOOD UREA NITROGEN 21 MG/DL (7-18); BUN/CREATININE RATIO 19.4 (5.4-32.0); CALCIUM 8.3 MG/DL (8.5-10.1); CHLORIDE 108 MMOL/L (99-107); CREATININE 1.08 MG/DL (0.60-1.10); GLUCOSE 104 MG/DL (70-104); MAGNESIUM 1.6 MG/DL (1.5-2.4); PHOSPHORUS 2.7 MG/DL (2.3-4.5); SODIUM 142 MMOL/L (135-145); TOTAL CARBON DIOXIDE 28.4 MMOL/L (24-32); TOTAL PROTEIN 6.2 G/DL (6.4-8.2); eGFR 72 ML/MIN
[2019-04-30] MEDS: normal saline 1000ml 1,000 ML IV SCH (09:43)
[2019-04-30] MEDS ORDERED: PANT40TA4 PO (09:53)
[2019-04-30] MEDS ORDERED: CARV-50 PO (09:53)
--- NOTE | 2019-04-30 11:53 | NUR ---
Pt D/C'd by Dr Wiseman in stable condition. IV removed x2 with intact cath. Medication and discharge instructions given to pt. Pt was escorted downstairs on W/C. Left the hospital via private vehicle accompanied of friend.
--- NOTE | 2019-05-01 23:28 | NUR ---
Please disregard dialysis charges 04/20/19 entered at 0007 by Ervin. They are duplicate charges Addendum: 05/01/19 at 8521 by Samantha Grimes RN Amended: Links added.
[2019-05-20] MEDS ORDERED: rocuronium bromide 100mg/10ml (10mg/ml) injection IV ONE (02:00)
[2019-05-20] MEDS ORDERED: etomidate 2mg/ml inj. ONE (02:00)
== END 2019-04-30 11:30 | disposition home or self-care (01) | DRG 208 ==
LOC: ER 08:09 → ED HOLD 13:05 → EDBEDREQSVC 15:22 → ICU 2S 16:45 → PCU 3S 04-20 14:50 → ICU 2S 04-21 11:22 → SUR 3N 04-27 15:23
PROVIDERS: ADMIT Internal Medicine Critical Care Medicine; ATTEND Family Medicine
PROC: 5A09357 Assistance with Respiratory Ventilation, Less than 24 Consecutive Hours, Continuous Positive Airway Pressure (ICD-10-PCS; principal; 2019-04-19)
PROC: 30233K1 Transfusion of Nonautologous Frozen Plasma into Peripheral Vein, Percutaneous Approach (ICD-10-PCS; 2019-04-19)
PROC: 5A1D70Z Performance of Urinary Filtration, Intermittent, Less than 6 Hours Per Day (ICD-10-PCS; 2019-04-19)
PROC: 02HV33Z Insertion of Infusion Device into Superior Vena Cava, Percutaneous Approach (ICD-10-PCS; 2019-04-19)
PROC: B548ZZA Ultrasonography of Superior Vena Cava, Guidance (ICD-10-PCS; 2019-04-19)
PROC: 5A1945Z Respiratory Ventilation, 24-96 Consecutive Hours (ICD-10-PCS; 2019-04-21)
PROC: 5A09357 Assistance with Respiratory Ventilation, Less than 24 Consecutive Hours, Continuous Positive Airway Pressure (ICD-10-PCS; 2019-04-21)
PROC: 0BH17EZ Insertion of Endotracheal Airway into Trachea, Via Natural or Artificial Opening (ICD-10-PCS; 2019-04-21)
PROC: 5A09357 Assistance with Respiratory Ventilation, Less than 24 Consecutive Hours, Continuous Positive Airway Pressure (ICD-10-PCS; 2019-04-24)
PROC: 5A09357 Assistance with Respiratory Ventilation, Less than 24 Consecutive Hours, Continuous Positive Airway Pressure (ICD-10-PCS; 2019-04-25)
PROC: 5A09357 Assistance with Respiratory Ventilation, Less than 24 Consecutive Hours, Continuous Positive Airway Pressure (ICD-10-PCS; 2019-04-26)
PROC: 5A09357 Assistance with Respiratory Ventilation, Less than 24 Consecutive Hours, Continuous Positive Airway Pressure (ICD-10-PCS; 2019-04-27)
PROC: 30233N1 Transfusion of Nonautologous Red Blood Cells into Peripheral Vein, Percutaneous Approach (ICD-10-PCS; 2019-04-27)
PROC: 5A09357 Assistance with Respiratory Ventilation, Less than 24 Consecutive Hours, Continuous Positive Airway Pressure (ICD-10-PCS; 2019-04-28)
PROC: 5A09357 Assistance with Respiratory Ventilation, Less than 24 Consecutive Hours, Continuous Positive Airway Pressure (ICD-10-PCS; 2019-04-29)
PROC: 0DB68ZX Excision of Stomach, Via Natural or Artificial Opening Endoscopic, Diagnostic (ICD-10-PCS; 2019-04-29)
PROC: 5A09357 Assistance with Respiratory Ventilation, Less than 24 Consecutive Hours, Continuous Positive Airway Pressure (ICD-10-PCS; 2019-04-30)
DX: J96.00 Acute respiratory failure, unspecified whether with hypoxia or hypercapnia (principal); N17.0 Acute kidney failure with tubular necrosis; D68.9 Coagulation defect, unspecified; E87.2 Acidosis; F10.231 Alcohol dependence with withdrawal delirium; I48.21 Permanent atrial fibrillation; Z68.41 Body mass index [BMI] 40.0-44.9, adult; I11.0 Hypertensive heart disease with heart failure; I50.9 Heart failure, unspecified; K29.70 Gastritis, unspecified, without bleeding; D50.0 Iron deficiency anemia secondary to blood loss (chronic); K04.7 Periapical abscess without sinus; E03.9 Hypothyroidism, unspecified; E66.01 Morbid (severe) obesity due to excess calories; E86.0 Dehydration; R19.7 Diarrhea, unspecified; G47.33 Obstructive sleep apnea (adult) (pediatric); K72.90 Hepatic failure, unspecified without coma; Z79.01 Long term (current) use of anticoagulants; Z87.891 Personal history of nicotine dependence; Z79.899 Other long term (current) drug therapy
CPT/HCPCS: 36415; 36556; 36600; 43239; 70450; 70486; 71045; 76700; 76775; 76937; 77001; 80048; 80053; 80202; 80320; 81001; 82272; 82570; 82728; 82803; 82948; 83036; 83540; 83550; 83605; 83735; 83880; 83935; 84100; 84132; 84133; 84134; 84145; 84155; 84156; 84165; 84300; 84443; 84484; 85018; 85025; 85027; 85610; 85730; 86703; 86885; 86900; 86901; 86920; 87040; 87070; 87077; 87081; 87088; 87186; 87207; 92508; 92616; 93306; 94002; 94003; 94640; 94660; 94668; 94760; 97110; 97116; 97161; 97530; 97535; 99152; 99291; A4620; A9270; C1751; C1769; C1894; C9113; G0257; G0378; J0282; J1630; J1644; J1650; J1756; J1815; J1940; J2060; J2150; J2250; J2405; J2543; J2597; J2930; J3010; J3370; J3411; J3475; J3490; J7030; J7040; J7060; J7614; P9016; P9059; Q4081

== ENCOUNTER 2019-06-11 18:22 | Inpatient (IN) | payer BC ==
[~2019-06-11] VITALS: Ht 177.8 cm; Wt 124.1 kg
[~2019-06-11 18:22] MED LIST changes: -ASPI81TA52 PO; +CARV-50 PO; -CARV25TA2 PO; -DABI150C PO; -DIGO250T2 PO; -LEVO25TA2 PO; -LISI-600 PO; +PANT40TA4 PO
--- NOTE | 2019-06-11 18:39 | NUR ---
PT LABS DRAWN. PT INSTRUCTED TO BARE DOWN IF HE IS HAVING A BM. HR WENT DOWN TO 180'S BUT GOES BACK UP TO 200'S
[2019-06-11] MEDS ORDERED: diltiazem 5mg/ml 5ml inj. IV ONE ×3 (18:50→19:55)
[2019-06-11] MEDS ORDERED: normal saline 1000ML IV soln IVB ONE (18:50)
[2019-06-11] MEDS ORDERED: magnesium 2GM in 50ml NS 50 ML IV ONE (18:50)
--- NOTE | 2019-06-11 18:52 | NUR ---
Dr. Geller made aware of hr 200
--- NOTE | 2019-06-11 18:53 | NUR ---
DR ALVES MADE AWARE OF PTS CURRENT STATUS. PT AOX3. DENIES CHEST PAIN OR SOB. STATES HE ONLY TAKES PROTONIX AND COREG. HE STATES HE DIDN'T LEAVE AMA LAST TIME HE WAS HERE AND STATES THE DOCTORS TOOK HIM OFF ALL HIS MEDS. HE DOESN'T KNOW WHY. HE IS AOX4. HE WAS PLACED ON 2L NC. CRASH CART NEAR PATIENT AND CARDIAC PADS HOOKED UP TO PT.
[2019-06-11] MEDS ORDERED: ketorolac trometh. 30mg/ml inj. IV ONE (18:55)
[2019-06-11 19:09] LABS: BASOPHILS # (AUTO) 0.1 X10'3 (0-0.2); EOSINOPHILS % (AUTO) 0.1 % (0-6); HEMOGLOBIN 10.5 g/dl (14.0-17.9); MONOCYTES # (AUTO) 0.7 X10'3 (0-0.9)
[2019-06-11 19:10] LABS: BASOPHILS % (AUTO) 0.8 % (0-1); HEMATOCRIT 32.6 % (42.0-52.0); LYMPHOCYTES # (AUTO) 0.3 X10'3 (1.1-4.8); LYMPHOCYTES % (AUTO) 3.3 % (21-51); MEAN CORPUSCULAR HEMOGLOBIN 28.9 PG (27.0-31.0); MEAN CORPUSCULAR HGB CONC 32.3 g/dL (33.0-36.5); MEAN CORPUSCULAR VOLUME 89.4 FL (78-98); MEAN PLATELET VOLUME 7.9 FL (7.4-10.4); MONOCYTES % (AUTO) 8.7 % (2-12); NEUTROPHILS % (AUTO) 87.1 % (42-75); PLATELET COUNT 138 X10'3 (140-440); RED BLOOD COUNT 3.65 X10'6 (4.70-6.10); RED CELL DISTRIBUTION WIDTH 18.9 % (11.5-14.5)
[2019-06-11 19:33] LABS: ALANINE AMINOTRANSFERASE 46 U/L (12-78); ALBUMIN 2.1 G/DL (3.4-5.0); ALBUMIN/GLOBULIN RATIO 0.4 (1.1-1.5); ALKALINE PHOSPHATASE 468 IU/L (46-116); ANION GAP 24 (8-16); ASPARTATE AMINO TRANSFERASE 170 U/L (10-37); BILIRUBIN,TOTAL 2.3 MG/DL (0.1-1.0); BLOOD UREA NITROGEN 9 MG/DL (7-18); BUN/CREATININE RATIO 6.7 (5.4-32.0); CALCIUM 8.6 MG/DL (8.5-10.1); CHLORIDE 93 MMOL/L (99-107); CREATININE 1.35 MG/DL (0.60-1.10); GLUCOSE 97 MG/DL (70-104); POTASSIUM 3.4 MMOL/L (3.5-5.1); SODIUM 133 MMOL/L (135-145); TOTAL CARBON DIOXIDE 16.1 MMOL/L (24-32); TOTAL PROTEIN 6.9 G/DL (6.4-8.2); eGFR 55 ML/MIN
[2019-06-11] MEDS ORDERED: diltiazem-D5W 125mg/125ml 125 ML IV SCH (19:35)
[2019-06-11 19:37] LABS: ANISOCYTOSIS 2+; PLATELET ESTIMATE DECREASED
[2019-06-11] MEDS: diltiazem-NS 100mg/100ml 100 ML IV SCH (19:41)
--- NOTE | 2019-06-11 20:41 | NUR ---
DR PATEL REQUESTED PT TO HAVE CARDIZEM RUNNING AT 10MG/HR. RATE HAS BEEN CHANGED.
[2019-06-11] MEDS: normal saline 1000ml 1,000 ML IV SCH (20:57)
[2019-06-11] MEDS ORDERED: ondansetron/PF 4mg/2ml inj IV PRN (21:00)
[2019-06-11] MEDS ORDERED: magnesium 4gm in 100ml NS 100 ML IV PRN (21:00)
[2019-06-11] MEDS ORDERED: magnesium 2GM in 50ml NS 50 ML IV PRN (21:00)
[2019-06-11] MEDS ORDERED: potassium CL 10mEq/100ml bag 100 ML IV PRN (21:00)
[2019-06-11] MEDS ORDERED: thiamine inj. 100 MG in normal saline 100ml IV soln 100 ML IV ONE (21:15)
[2019-06-11] MEDS ORDERED: LORazepam 2 mg/ml vial IV PRN (21:15)
[2019-06-11] MEDS ORDERED: thiamine 100mg/ml 2ml inj. IV ONE (21:25)
--- NOTE | 2019-06-11 22:15 | NUR ---
I have received report from ROJAS Dixon and had the opportunity to ask questions. Pt will be transferred to [id number].
[2019-06-11 22:25] VITALS: BP 122/77
--- NOTE | 2019-06-11 22:25 | NUR ---
Pt came to the unit via gurney, accompanied by an RN. Pt was safely transferred to unit bed, he tolerated the transfer well, no distress noted. Pt belongings was with the pt. Diltiazem was running @ 10 mg/h. Mobile 63 at bedside to monitor pt. MRSA culture sample taken, darted, skin assessment done.
[2019-06-12] VITALS (15 sets, daily range): BP systolic 71–113; BP diastolic 44–82
[2019-06-12 01:12] LABS: ALANINE AMINOTRANSFERASE 42 U/L (12-78); ALBUMIN 1.9 G/DL (3.4-5.0); ALBUMIN/GLOBULIN RATIO 0.4 (1.1-1.5); ALKALINE PHOSPHATASE 401 IU/L (46-116); ANION GAP 21 (8-16); ASPARTATE AMINO TRANSFERASE 145 U/L (10-37); BILIRUBIN,TOTAL 1.7 MG/DL (0.1-1.0); BLOOD UREA NITROGEN 7 MG/DL (7-18); BUN/CREATININE RATIO 6.4 (5.4-32.0); CALCIUM 7.8 MG/DL (8.5-10.1); CHLORIDE 97 MMOL/L (99-107); CREATININE 1.09 MG/DL (0.60-1.10); GLUCOSE 80 MG/DL (70-104); POTASSIUM 3.3 MMOL/L (3.5-5.1); SODIUM 136 MMOL/L (135-145); TOTAL PROTEIN 6.2 G/DL (6.4-8.2); eGFR 71 ML/MIN
[2019-06-12 01:16] LABS: MAGNESIUM 1.2 MG/DL (1.5-2.4)
[2019-06-12] MEDS: potassium CL 10mEq/100ml bag 100 ML IV PRN ×2 (04:08→05:35)
[2019-06-12] MEDS: HYDROcodone/acetaminophen 5mg/325mg tablet PO PRN (05:12)
[2019-06-12] MEDS ORDERED: diltiazem-NS 100mg/100ml 100 ML IV SCH (05:20)
[2019-06-12] MEDS: diltiazem-NS 100mg/100ml 100 ML IV SCH (06:08)
--- NOTE | 2019-06-12 06:15 | NUR ---
Patient in room PCU 3028. I have received report from ROJAS Birmingham and had the opportunity to ask questions and assume patient care.
--- NOTE | 2019-06-12 06:42 | NUR ---
Problems reprioritized. Patient report given, questions answered & plan of care reviewed with ROJAS Cedillo.
[2019-06-12 07:27] LABS: HEMOGLOBIN 9.1 g/dl (14.0-17.9); MEAN CORPUSCULAR HEMOGLOBIN 29.1 PG (27.0-31.0); MEAN CORPUSCULAR HGB CONC 32.5 g/dL (33.0-36.5); MONOCYTES # (AUTO) 0.5 X10'3 (0-0.9); WHITE BLOOD COUNT 4.1 X10'3 (4.5-11.0)
[2019-06-12 07:29] LABS: BASOPHILS # (AUTO) 0.1 X10'3 (0-0.2); BASOPHILS % (AUTO) 1.3 % (0-1); LYMPHOCYTES # (AUTO) 0.5 X10'3 (1.1-4.8); LYMPHOCYTES % (AUTO) 11.6 % (21-51); MEAN CORPUSCULAR VOLUME 89.6 FL (78-98); MONOCYTES % (AUTO) 11.6 % (2-12); NEUTROPHILS % (AUTO) 74.5 % (42-75); PLATELET COUNT 95 X10'3 (140-440); RED BLOOD COUNT 3.13 X10'6 (4.70-6.10)
[2019-06-12] MEDS ORDERED: potassium Cl 20 mEq SR tablet PO PRN (07:35)
[2019-06-12] MEDS: heparin, porcine 5000 units/ml vial SQ SCH ×2 (08:00→20:44)
[2019-06-12] MEDS: K and/or MAG REPLACEMENT MC SCH ×4 (08:18→20:00)
[2019-06-12 08:20] LABS: TOTAL CELLS COUNTED 100
[2019-06-12 08:24] LABS: ANISOCYTOSIS 2+; ELLIPTOCYTES FEW; HYPOCHROMASIA 1+; PLATELET ESTIMATE DECREASED; POLYCHROMASIA 1+
[2019-06-12] MEDS: carVEDilol 12.5mg tablet PO SCH ×2 (08:30→20:46)
--- NOTE | 2019-06-12 10:00 | NUR ---
Per Dr. Hernandez, titrate cardizem gtt to 7mg/hr
--- NOTE | 2019-06-12 11:24 | NUR ---
Paged David PAGER ID: [phone] MESSAGE: [id number]: Moris ROMO pt has pauses within rate of mid 50s. SBP 91. Pt still on 7mg Cardizem. Kindly advise! Nguyen [phone]
--- NOTE | 2019-06-12 11:24 | NUR ---
New orders from nick to titrate cardizem to 5mg/hr and place patient on HH diet
--- NOTE | 2019-06-12 13:35 | NUR ---
Paged David regarding pts HR and BP PAGER ID: [phone] MESSAGE: [id number]: Moris Stallings: FYI HR 80s-90s, SBP low 80s-90. Kindly advise -Nguyen [phone]
--- NOTE | 2019-06-12 13:36 | NUR ---
Per Daivd, discontinue cardizem gtt, will start cardizem PO
[2019-06-12] MEDS: diltiazem 30mg tablet PO SCH ×2 (13:53→20:46)
[2019-06-12] MEDS: potassium Cl 20 mEq SR tablet PO PRN ×2 (15:59→20:50)
--- NOTE | 2019-06-12 18:30 | NUR ---
Patient in room PCU 3028. I have received report from Nguyen Frank RN and had the opportunity to ask questions and assume patient care.
--- NOTE | 2019-06-12 19:00 | NUR ---
Problems reprioritized. Patient report given, questions answered & plan of care reviewed with ROJAS Sanchez.
[2019-06-13] VITALS (10 sets, daily range): BP systolic 86–109; BP diastolic 51–72
[2019-06-13] MEDS: diltiazem 30mg tablet PO SCH ×4 (02:34→21:25)
[2019-06-13 06:14] LABS: LYMPHOCYTES # (AUTO) 0.2 X10'3 (1.1-4.8); MONOCYTES # (AUTO) 0.5 X10'3 (0-0.9); NEUTROPHILS # (AUTO) 1.8 X10'3 (1.8-7.7); PLATELET COUNT 82 X10'3 (140-440); WHITE BLOOD COUNT 2.6 X10'3 (4.5-11.0)
[2019-06-13 06:15] LABS: BASOPHILS % (AUTO) 1.1 % (0-1); EOSINOPHILS % (AUTO) 1.1 % (0-6); HEMATOCRIT 26.2 % (42.0-52.0); HEMOGLOBIN 8.6 g/dl (14.0-17.9); LYMPHOCYTES % (AUTO) 8.1 % (21-51); MEAN CORPUSCULAR HEMOGLOBIN 28.6 PG (27.0-31.0); MEAN CORPUSCULAR HGB CONC 32.8 g/dL (33.0-36.5); MEAN CORPUSCULAR VOLUME 87.3 FL (78-98); MEAN PLATELET VOLUME 8.4 FL (7.4-10.4); MONOCYTES % (AUTO) 19.8 % (2-12); NEUTROPHILS % (AUTO) 69.9 % (42-75)
[2019-06-13 06:23] LABS: ALANINE AMINOTRANSFERASE 40 U/L (12-78); ALBUMIN 1.7 G/DL (3.4-5.0); ALBUMIN/GLOBULIN RATIO 0.4 (1.1-1.5); ALKALINE PHOSPHATASE 381 IU/L (46-116); ANION GAP 5 (8-16); ASPARTATE AMINO TRANSFERASE 116 U/L (10-37); BILIRUBIN,TOTAL 1.1 MG/DL (0.1-1.0); BLOOD UREA NITROGEN 8 MG/DL (7-18); BUN/CREATININE RATIO 7.3 (5.4-32.0); CALCIUM 7.8 MG/DL (8.5-10.1); CHLORIDE 100 MMOL/L (99-107); CREATININE 1.09 MG/DL (0.60-1.10); GLUCOSE 117 MG/DL (70-104); MAGNESIUM 1.8 MG/DL (1.5-2.4); POTASSIUM 3.2 MMOL/L (3.5-5.1); SODIUM 134 MMOL/L (135-145); TOTAL CARBON DIOXIDE 28.7 MMOL/L (24-32); TOTAL PROTEIN 5.8 G/DL (6.4-8.2); eGFR 71 ML/MIN
--- NOTE | 2019-06-13 06:36 | NUR ---
Problems reprioritized. Patient report given, questions answered & plan of care reviewed with Stella XIE.
--- NOTE | 2019-06-13 07:06 | NUR ---
Patient in room PCU 3028. I have received report from Remigio RN and had the opportunity to ask questions and assume patient care.
[2019-06-13 07:40] LABS: ANISOCYTOSIS 2+; PLATELET ESTIMATE DECREASED; TOTAL CELLS COUNTED 100
[2019-06-13 07:41] LABS: HYPOCHROMASIA 1+; POLYCHROMASIA 1+; STOMATOCYTES 1+; TOXIC GRANULATION 1+
[2019-06-13] MEDS: K and/or MAG REPLACEMENT MC SCH ×2 (08:00→19:00)
[2019-06-13] MEDS: heparin, porcine 5000 units/ml vial SQ SCH ×3 (08:00→20:00)
[2019-06-13] MEDS: carVEDilol 12.5mg tablet PO SCH ×2 (08:19→21:24)
[2019-06-13] MEDS ORDERED: Potassium Cl inj 20 MEQ in normal saline 1000ml 990 ML IV SCH (09:50)
--- NOTE | 2019-06-13 10:06 | NUR ---
MD notified regarding blood pressure trends and c/o feeling dizzy when ambulating with PT. MD also notified regarding PLT count. MD at bedside, new orders implemented.
[2019-06-13] MEDS: folic acid 1mg tablet PO SCH (10:42)
[2019-06-13] MEDS: multivitamins, therapeutics tablet PO SCH (10:42)
[2019-06-13] MEDS: cyanocobalamin 500mcg tablet PO SCH (10:43)
[2019-06-13] MEDS: thiamine 100mg tablet PO SCH ×2 (10:44→20:19)
[2019-06-13] MEDS: CefTRIAXone/D5W-Rocephin 1gm 50 ML IV SCH (12:28)
[2019-06-13 16:41] LABS: CLARITY,URINE CLEAR (Clear); COLOR,URINE YELLOW (Yellow); GLUCOSE, URINE NEGATIVE (Neg); KETONES,URINE NEGATIVE (Neg); LEUKOCYTE ESTERASE ,URINE NEGATIVE (Neg); NITRITES, URINE NEGATIVE (Neg); OCCULT BLOOD,URINE NEGATIVE (Neg); PROTEIN,URINE NEGATIVE (Neg)
[2019-06-13 16:43] LABS: UA COLLECTION TYPE CLN CATCH MIDSTREAM
--- NOTE | 2019-06-13 17:55 | NUR ---
Patients blood pressure has improved with medication changes and IVF. Pt. has declined any further symptoms since ambulating with PT. UA was sent out and ABT was initiated. Pt. is afebrile at this time. Will report to NOC shift.
--- NOTE | 2019-06-13 18:50 | NUR ---
Problems reprioritized. Patient report given, questions answered & plan of care reviewed with Heavenly XIE.
--- NOTE | 2019-06-13 18:50 | NUR ---
Patient in room PCU 3028. I have received report from ROJAS Douglas and had the opportunity to ask questions and assume patient care.
[2019-06-13] MEDS: normal saline 1000ml 1,000 ML IV SCH (20:57)
[2019-06-13] MEDS ORDERED: LORazepam 1 MG tablet PO PRN (21:15)
[2019-06-13] MEDS ORDERED: LORazepam 2 mg/ml vial IV PRN (21:15)
[2019-06-13] MEDS: carvedilol 6.25mg tablet PO SCH (21:24)
[2019-06-14] VITALS (8 sets, daily range): BP systolic 94–115; BP diastolic 62–76
[2019-06-14] MEDS: diltiazem 30mg tablet PO SCH (03:32)
[2019-06-14 05:52] LABS: ALANINE AMINOTRANSFERASE 32 U/L (12-78); ALBUMIN 1.7 G/DL (3.4-5.0); ALBUMIN/GLOBULIN RATIO 0.4 (1.1-1.5); ALKALINE PHOSPHATASE 323 IU/L (46-116); ANION GAP 4 (8-16); ASPARTATE AMINO TRANSFERASE 82 U/L (10-37); BILIRUBIN,TOTAL 0.9 MG/DL (0.1-1.0); BLOOD UREA NITROGEN 11 MG/DL (7-18); BUN/CREATININE RATIO 12.8 (5.4-32.0); CALCIUM 7.9 MG/DL (8.5-10.1); CHLORIDE 101 MMOL/L (99-107); CREATININE 0.86 MG/DL (0.60-1.10); GLUCOSE 107 MG/DL (70-104); MAGNESIUM 1.4 MG/DL (1.5-2.4); POTASSIUM 3.2 MMOL/L (3.5-5.1); SODIUM 135 MMOL/L (135-145); TOTAL CARBON DIOXIDE 30.2 MMOL/L (24-32); TOTAL PROTEIN 5.8 G/DL (6.4-8.2); eGFR > 90 ML/MIN
--- NOTE | 2019-06-14 06:24 | NUR ---
Problems reprioritized. Patient report given, questions answered & plan of care reviewed with ROJAS Douglas.
--- NOTE | 2019-06-14 06:46 | NUR ---
Patient in room PCU 3028. I have received report from Heavenyl XIE and had the opportunity to ask questions and assume patient care.
[2019-06-14] MEDS: K and/or MAG REPLACEMENT MC SCH ×2 (08:00→20:00)
[2019-06-14] MEDS: heparin, porcine 5000 units/ml vial SQ SCH ×2 (08:00→20:00)
[2019-06-14 08:05] LABS: TOTAL CELLS COUNTED 100
[2019-06-14 08:06] LABS: ANISOCYTOSIS 2+; PLATELET ESTIMATE DECREASED
[2019-06-14 08:07] LABS: HYPOCHROMASIA 1+; LARGE PLATELETS FEW
[2019-06-14 08:08] LABS: POLYCHROMASIA FEW
[2019-06-14] MEDS: multivitamins, therapeutics tablet PO SCH (08:23)
[2019-06-14] MEDS: potassium Cl 20 mEq SR tablet PO PRN ×3 (08:23→20:22)
[2019-06-14] MEDS: carVEDilol 12.5mg tablet PO SCH ×2 (08:23→20:22)
[2019-06-14] MEDS: folic acid 1mg tablet PO SCH (08:23)
[2019-06-14] MEDS: thiamine 100mg tablet PO SCH ×2 (08:23→20:22)
[2019-06-14] MEDS: carvedilol 6.25mg tablet PO SCH (08:23)
[2019-06-14] MEDS: cyanocobalamin 500mcg tablet PO SCH (08:24)
[2019-06-14] MEDS: diltiazem CD 120mg capsule (once-daily) PO SCH (08:29)
[2019-06-14] MEDS: HYDROcodone/acetaminophen 5mg/325mg tablet PO PRN (08:29)
[2019-06-14] MEDS: CefTRIAXone/D5W-Rocephin 1gm 50 ML IV SCH (08:36)
[2019-06-14 09:12] LABS: HEMATOCRIT 25.4 % (42.0-52.0); HEMOGLOBIN 8.3 g/dl (14.0-17.9); MEAN CORPUSCULAR HEMOGLOBIN 28.7 PG (27.0-31.0); MEAN CORPUSCULAR HGB CONC 32.6 g/dL (33.0-36.5); MEAN CORPUSCULAR VOLUME 87.9 FL (78-98); PLATELET COUNT 82 X10'3 (140-440); RED BLOOD COUNT 2.89 X10'6 (4.70-6.10); RED CELL DISTRIBUTION WIDTH 19.5 % (11.5-14.5); WHITE BLOOD COUNT 2.2 X10'3 (4.5-11.0)
[2019-06-14 09:13] LABS: BASOPHILS % (AUTO) 1.5 % (0-1); EOSINOPHILS % (AUTO) 1.3 % (0-6); LYMPHOCYTES # (AUTO) 0.2 X10'3 (1.1-4.8); LYMPHOCYTES % (AUTO) 10.1 % (21-51); MEAN PLATELET VOLUME 8.6 FL (7.4-10.4); MONOCYTES # (AUTO) 0.7 X10'3 (0-0.9); MONOCYTES % (AUTO) 34.2 % (2-12); NEUTROPHILS # (AUTO) 1.2 X10'3 (1.8-7.7); NEUTROPHILS % (AUTO) 52.9 % (42-75)
[2019-06-14] MEDS: magnesium Cl slow-release 64mg tablet PO PRN (12:42)
[2019-06-14] MEDS ORDERED: digoxin 250mcg/ml 2ml ampule IV ONE ×2 (13:30→20:00)
[2019-06-14] MEDS ORDERED: azithromycin 250mg tablet PO ONE (13:40)
--- NOTE | 2019-06-14 14:34 | NUR ---
IV digoxin given for a-fib - rate fluctuates anywhere from 110-130's. Will continue to monitor for any changes.
--- NOTE | 2019-06-14 17:57 | NUR ---
[employer] alerted this nurse that the patients HR is 120's. Pt. is asymptomatic at this time and his blood pressure is stable at this time. Dr. Hernandez notified and he data entered another dose of digoxin to be given tonight.
--- NOTE | 2019-06-14 18:50 | NUR ---
Problems reprioritized. Patient report given, questions answered & plan of care reviewed with Fermín XIE.
--- NOTE | 2019-06-14 18:59 | NUR ---
Patient in room PCU 3028B. I have received report from ROJAS Douglas and had the opportunity to ask questions and assume patient care.
[2019-06-15] MEDS: magnesium Cl slow-release 64mg tablet PO PRN ×2 (00:10→16:13)
[2019-06-15 02:00] VITALS: BP 107/60
--- NOTE | 2019-06-15 04:15 | NUR ---
Notified by plastic technician that patient's HR sustaining between 130-150's still in atrial fibrillation with "small, sudden" burst of SVT in 170's. will call order clerk night time hospitalist notified, Dr. Quintana, and order received for 10 mg IV Labetalol q4h for HR >100 and to hold for systolic <100. Will continue to monitor.
[2019-06-15] MEDS ORDERED: labetalol 20mg/4ml (5mg/ml) syringe IV PRN (04:35)
--- NOTE | 2019-06-15 05:30 | NUR ---
Notified by analytical lab technician that HR still sustaining in 120-130's. Patient asymptomatic. 12-lead shows atrial fibrillation with RVR. Will notify day shift RN.
[2019-06-15 06:06] LABS: BASOPHILS % (AUTO) 1.2 % (0-1); HEMATOCRIT 27.7 % (42.0-52.0); LYMPHOCYTES # (AUTO) 0.3 X10'3 (1.1-4.8); MEAN CORPUSCULAR HEMOGLOBIN 28.5 PG (27.0-31.0); MONOCYTES # (AUTO) 1.2 X10'3 (0-0.9); NEUTROPHILS # (AUTO) 0.4 X10'3 (1.8-7.7); RED CELL DISTRIBUTION WIDTH 19.7 % (11.5-14.5); WHITE BLOOD COUNT 1.9 X10'3 (4.5-11.0)
[2019-06-15 06:10] LABS: EOSINOPHILS % (AUTO) 0.5 % (0-6); LYMPHOCYTES % (AUTO) 15.2 % (21-51); MEAN CORPUSCULAR HGB CONC 32.5 g/dL (33.0-36.5); MEAN CORPUSCULAR VOLUME 87.7 FL (78-98); MEAN PLATELET VOLUME 8.6 FL (7.4-10.4); MONOCYTES % (AUTO) 63.3 % (2-12); NEUTROPHILS % (AUTO) 19.8 % (42-75); PLATELET COUNT 95 X10'3 (140-440); RED BLOOD COUNT 3.16 X10'6 (4.70-6.10)
[2019-06-15 06:26] LABS: ALANINE AMINOTRANSFERASE 31 U/L (12-78); ALBUMIN 1.7 G/DL (3.4-5.0); ALBUMIN/GLOBULIN RATIO 0.4 (1.1-1.5); ALKALINE PHOSPHATASE 292 IU/L (46-116); ANION GAP 5 (8-16); BLOOD UREA NITROGEN 9 MG/DL (7-18); BUN/CREATININE RATIO 11.8 (5.4-32.0); CHLORIDE 101 MMOL/L (99-107); CREATININE 0.76 MG/DL (0.60-1.10); GLUCOSE 95 MG/DL (70-104); MAGNESIUM 1.2 MG/DL (1.5-2.4); SODIUM 135 MMOL/L (135-145); TOTAL CARBON DIOXIDE 28.9 MMOL/L (24-32); TOTAL PROTEIN 6.1 G/DL (6.4-8.2); eGFR > 90 ML/MIN
[2019-06-15 06:27] LABS: ASPARTATE AMINO TRANSFERASE 79 U/L (10-37); POTASSIUM 4.2 MMOL/L (3.5-5.1)
[2019-06-15 06:40] LABS: % IRON SATURATION 12 % (11-46); IRON 12 UG/DL (53-167); TOTAL IRON BINDING CAPACITY 103 UG/DL (259-388)
[2019-06-15] MEDS ORDERED: normal saline 500ml IV soln 500 ML IV ONE (06:50)
[2019-06-15] MEDS ORDERED: labetalol 20mg/4ml (5mg/ml) syringe IV ONE (06:50)
[2019-06-15] MEDS: acetaminophen 325mg tablet PO PRN ×2 (06:51→15:06)
--- NOTE | 2019-06-15 06:53 | NUR ---
Jodange reported HR 150's. Temp is currently 102.[address] Coughlin notified with orders to obtain blood cultures and chest x-ray (Informed that B.C. completed on 06/10) therefore, she ordered to just repeat CXR. Received orders to administer tylenol 650 mg, administer Labetalol 10 mg one time now and give IVF bolus of 500 cc. Pt. states he does feel like his heart is going fast and he does feel feverish but denies chest pain, dizziness or orther symptoms at this time. Blood pressure is currrently 110/60. Will monitor patient closely.
[2019-06-15 07:00] VITALS: BP 110/70
[2019-06-15] MEDS: diltiazem CD 120mg capsule (once-daily) PO SCH (07:04)
[2019-06-15] MEDS: folic acid 1mg tablet PO SCH (07:05)
[2019-06-15] MEDS: multivitamins, therapeutics tablet PO SCH (07:05)
[2019-06-15] MEDS: cyanocobalamin 500mcg tablet PO SCH (07:05)
[2019-06-15] MEDS: thiamine 100mg tablet PO SCH ×2 (07:05→20:59)
[2019-06-15] MEDS: carVEDilol 12.5mg tablet PO SCH (07:05)
--- NOTE | 2019-06-15 07:07 | NUR ---
Problems reprioritized. Patient report given, questions answered & plan of care reviewed with ROJAS Douglas.
[2019-06-15] MEDS: digoxin 250mcg (0.25mg) tablet PO SCH (07:08)
--- NOTE | 2019-06-15 07:22 | NUR ---
PAGER ID: [phone] MESSAGE: [id number] Moris hurst, HR 150's and temp of 102 orally. IV labetalol given, Tylenol and AM meds per Dr. Lilian walters. Stella Deras [phone]
[2019-06-15] MEDS: heparin, porcine 5000 units/ml vial SQ SCH ×2 (08:00→19:35)
[2019-06-15] MEDS: K and/or MAG REPLACEMENT MC SCH ×2 (08:00→20:00)
[2019-06-15] MEDS ORDERED: azithromycin 250mg tablet PO SCH (08:00)
[2019-06-15 08:36] LABS: PLATELET ESTIMATE DECREASED; TOTAL CELLS COUNTED 100
--- NOTE | 2019-06-15 08:36 | NUR ---
Spoke with Dr. Adams regarding condition and Dr. Wiseman - Dr. Wiseman stated that he would call into the patients room and speak with her and her daughter. He stated he was not able to go into the room at this time. Dr. Adams stated he is in the clinic right now but thought that she is a candidate for comfort care. Dr. Adams stated her prognosis is very poor and thought that Morphine would be beneficial for her breathing. Received orders to administer Morphine 2 mg IV q 2 hrs PRN for dyspnea. Addendum: 06/15/19 at 0842 by Stella Ruiz RN entry level web developer error - previous note entered on wrong patient.
[2019-06-15 08:39] LABS: ANISOCYTOSIS 2+; HYPOCHROMASIA 1+; LARGE PLATELETS FEW; POLYCHROMASIA 1+
[2019-06-15 08:42] LABS: TOXIC GRANULATION 1+
--- NOTE | 2019-06-15 08:47 | NUR ---
Temp is still 101.6 - Ice packed applied and patient is resting at this time. HR is 120's. Will continue to monitor closely.
[2019-06-15] MEDS: CefTRIAXone/D5W-Rocephin 1gm 50 ML IV SCH (09:11)
[2019-06-15 10:00] VITALS: BP 115/70
[2019-06-15] MEDS ORDERED: carvedilol 6.25mg tablet PO ONE (10:10)
--- NOTE | 2019-06-15 10:10 | NUR ---
re-assment, patients temp is 98.6, HR 110-112's. Pt. is asymptomatic. Reviewed labs with Dr. Hernandez including WBC of 1.9 - Pt will be placed in neutropenic precautions.
[2019-06-15 11:00] VITALS: BP 98/71
--- NOTE | 2019-06-15 11:00 | NUR ---
Pt. was placed on neutropenic precautions r/t WBC of 1.9 - To prevent risk of infection, the patient is being transferred care to another nurse since this nurse has other infectious patients. Reported off to Mita XIE. All questions answered.
[2019-06-15] MEDS: piperacillin/tazo 4.5gm/100ml 100 ML IV SCH ×2 (11:24→16:14)
[2019-06-15 11:45] LABS: CLARITY,URINE CLEAR (Clear); GLUCOSE, URINE NEGATIVE (Neg); KETONES,URINE NEGATIVE (Neg); LEUKOCYTE ESTERASE ,URINE NEGATIVE (Neg); NITRITES, URINE NEGATIVE (Neg); OCCULT BLOOD,URINE NEGATIVE (Neg); PH,URINE 5.5 (4.8-8.0); PROTEIN,URINE NEGATIVE (Neg)
[2019-06-15 11:48] LABS: UA COLLECTION TYPE NON-SPECIFIED
--- NOTE | 2019-06-15 11:48 | NUR ---
Patient in room PCU 3022. I have received report from Stella XIE and had the opportunity to ask questions and assume patient care.
[2019-06-15 11:49] LABS: COLOR,URINE AMBER (Yellow)
--- NOTE | 2019-06-15 12:42 | NUR ---
Paged PAGER ID: [phone] MESSAGE: Mita SALAZAR. Harpreet Johnson 3022. FYI HR will occasionally go above 100 and sustain for few minutes before going back below 100. Regarding blood pressure, would you like a different PRN besides Labetalol?
--- NOTE | 2019-06-15 12:57 | NUR ---
I have taken over care of patient from Stella XIE and agree with physical assessment
[2019-06-15 13:09] LABS: OCCULT BLOOD STOOL NEGATIVE (Neg)
[2019-06-15] MEDS ORDERED: acetaminophen 325mg tablet PO PRN (17:10)
--- NOTE | 2019-06-15 18:12 | NUR ---
Problems reprioritized. Patient report given, questions answered & plan of care reviewed with Talita XIE.
[2019-06-15 18:30] VITALS: BP 94/56
--- NOTE | 2019-06-15 18:30 | NUR ---
Patient in room PCU 3022. I have received report from Mita XIE and had the opportunity to ask questions and assume patient care.
[2019-06-15] MEDS: carvedilol 6.25mg tablet PO SCH (20:59)
[2019-06-15] MEDS: normal saline 1000ml 1,000 ML IV SCH (21:00)
[2019-06-15] MEDS ORDERED: LORazepam 1 MG tablet PO PRN (21:15)
[2019-06-15] MEDS ORDERED: LORazepam 2 mg/ml vial IV PRN (21:15)
[2019-06-15 22:00] VITALS: BP 96/68
[2019-06-16] MEDS: piperacillin/tazo 4.5gm/100ml 100 ML IV SCH ×4 (00:22→23:23)
[2019-06-16 02:00] VITALS: BP 95/64
[2019-06-16 05:46] LABS: LYMPHOCYTES # (AUTO) 0.8 X10'3 (1.1-4.8); MEAN PLATELET VOLUME 8.6 FL (7.4-10.4); NEUTROPHILS # (AUTO) 0.5 X10'3 (1.8-7.7); RED BLOOD COUNT 2.89 X10'6 (4.70-6.10); RED CELL DISTRIBUTION WIDTH 19.4 % (11.5-14.5)
[2019-06-16 05:48] LABS: BASOPHILS % (AUTO) 0.9 % (0-1); EOSINOPHILS % (AUTO) 1.2 % (0-6); HEMATOCRIT 25.5 % (42.0-52.0); HEMOGLOBIN 8.2 g/dl (14.0-17.9); LYMPHOCYTES % (AUTO) 25.2 % (21-51); MEAN CORPUSCULAR HEMOGLOBIN 28.5 PG (27.0-31.0); MEAN CORPUSCULAR HGB CONC 32.2 g/dL (33.0-36.5); MEAN CORPUSCULAR VOLUME 88.5 FL (78-98); MONOCYTES # (AUTO) 1.9 X10'3 (0-0.9); MONOCYTES % (AUTO) 57.8 % (2-12); NEUTROPHILS % (AUTO) 14.9 % (42-75); PLATELET COUNT 106 X10'3 (140-440); WHITE BLOOD COUNT 3.4 X10'3 (4.5-11.0)
[2019-06-16 06:00] VITALS: BP 113/69
--- NOTE | 2019-06-16 06:13 | NUR ---
Problems reprioritized. Patient report given, questions answered & plan of care reviewed with Leticia XIE.
--- NOTE | 2019-06-16 06:15 | NUR ---
Patient in room PCU 3022. I have received report from ROJAS Sanon and had the opportunity to ask questions and assume patient care.
[2019-06-16 06:27] LABS: ALANINE AMINOTRANSFERASE 34 U/L (12-78); ALBUMIN 1.6 G/DL (3.4-5.0); ALBUMIN/GLOBULIN RATIO 0.4 (1.1-1.5); ALKALINE PHOSPHATASE 237 IU/L (46-116); ANION GAP 4 (8-16); ASPARTATE AMINO TRANSFERASE 67 U/L (10-37); BILIRUBIN,TOTAL 0.9 MG/DL (0.1-1.0); BLOOD UREA NITROGEN 8 MG/DL (7-18); BUN/CREATININE RATIO 11.3 (5.4-32.0); CALCIUM 8.2 MG/DL (8.5-10.1); CHLORIDE 101 MMOL/L (99-107); CREATININE 0.71 MG/DL (0.60-1.10); GLUCOSE 83 MG/DL (70-104); MAGNESIUM 1.1 MG/DL (1.5-2.4); POTASSIUM 3.6 MMOL/L (3.5-5.1); SODIUM 135 MMOL/L (135-145); TOTAL CARBON DIOXIDE 29.8 MMOL/L (24-32); TOTAL PROTEIN 5.8 G/DL (6.4-8.2); eGFR > 90 ML/MIN
[2019-06-16] MEDS: K and/or MAG REPLACEMENT MC SCH ×2 (08:00→20:40)
[2019-06-16] MEDS: heparin, porcine 5000 units/ml vial SQ SCH ×2 (08:00→20:32)
[2019-06-16] MEDS: thiamine 100mg tablet PO SCH ×2 (08:42→20:32)
[2019-06-16] MEDS: folic acid 1mg tablet PO SCH (08:42)
[2019-06-16] MEDS: digoxin 250mcg (0.25mg) tablet PO SCH (08:42)
[2019-06-16] MEDS: multivitamins, therapeutics tablet PO SCH (08:43)
[2019-06-16] MEDS: diltiazem CD 120mg capsule (once-daily) PO SCH (08:43)
[2019-06-16] MEDS: cyanocobalamin 500mcg tablet PO SCH (08:43)
[2019-06-16] MEDS: magnesium Cl slow-release 64mg tablet PO PRN ×2 (08:48→20:33)
[2019-06-16] MEDS: carvedilol 6.25mg tablet PO SCH ×2 (08:48→20:36)
[2019-06-16] MEDS ORDERED: iohexol 300mg/ml 100ml inj. ONE (09:24)
[2019-06-16 09:44] LABS: ANISOCYTOSIS 2+; PLATELET ESTIMATE DECREASED; TOTAL CELLS COUNTED 100
[2019-06-16 09:45] LABS: HYPOCHROMASIA 2+; LARGE PLATELETS FEW
[2019-06-16 11:00] VITALS: BP 107/63
--- NOTE | 2019-06-16 11:55 | NUR ---
Initial: Pt admit w/ afib/RVR, HTN, RLL PNA, and normocytic anemia secondary to etoh abuse per MD. On etoh withdrawal protocol receiving thiamin, folic, B12, and MVI. PO 75-100% avg heart healthy meals partially meeting needs given wt. No wt record in EMR; JAMES d/w RN who reports pt bed scale this AM 121.4kg. Clinical pharmacist notified in case pt receiving wt based meds. Double proteins TIDWM added given pt healing needs; sacrum PU and R heel necrotic PU per EMR. Dietary notified. LBM 06/13. Will continue to monitor for additional protein needs. Rec: 1. continue heart healthy diet; double proteins TIDWM 2. thiamin, folic, MVI , B12 for etoh per MD 3. bowel care as needed 4. wt per rx Addendum: 06/16/19 at [address] Amended: Links added.
[2019-06-16] MEDS ORDERED: carvedilol 6.25mg tablet PO ONE (12:05)
--- NOTE | 2019-06-16 12:43 | NUR ---
Wound care POC. Arrived at bedside for assessment. Pt being taken for diagnostic procedure so unable to assess at this visit. Will follow up.
[2019-06-16 15:00] VITALS: BP 96/55
[2019-06-16] MEDS: normal saline 1000ml 1,000 ML IV SCH (17:55)
[2019-06-16 18:00] VITALS: BP 103/83
--- NOTE | 2019-06-16 18:36 | NUR ---
Problems reprioritized. Patient report given, questions answered & plan of care reviewed with ROJAS Cid. All patient needs met at this time.
--- NOTE | 2019-06-16 19:09 | NUR ---
Patient in room PCU 3022. I have received report from Leticia XIE and had the opportunity to ask questions and assume patient care.
[2019-06-16 22:00] VITALS: BP 109/68
[2019-06-17 02:30] VITALS: BP 102/72
[2019-06-17] MEDS: normal saline 1000ml 1,000 ML IV SCH ×3 (03:59→19:56)
[2019-06-17 06:00] VITALS: BP 110/62
--- NOTE | 2019-06-17 06:09 | NUR ---
Problems reprioritized. Patient report given, questions answered & plan of care reviewed with Leticia XIE.
--- NOTE | 2019-06-17 06:13 | NUR ---
Patient in room PCU 3022. I have received report from ROJAS Cid and had the opportunity to ask questions and assume patient care.
[2019-06-17] MEDS: heparin, porcine 5000 units/ml vial SQ SCH ×2 (08:00→19:57)
[2019-06-17] MEDS: K and/or MAG REPLACEMENT MC SCH ×2 (08:00→20:00)
[2019-06-17] MEDS ORDERED: carVEDilol 3.125mg tablet PO ONE (08:10)
[2019-06-17] MEDS: thiamine 100mg tablet PO SCH ×2 (10:01→19:56)
[2019-06-17] MEDS: multivitamins, therapeutics tablet PO SCH (10:01)
[2019-06-17] MEDS: digoxin 250mcg (0.25mg) tablet PO SCH (10:01)
[2019-06-17] MEDS: carvedilol 6.25mg tablet PO SCH ×2 (10:01→20:00)
[2019-06-17] MEDS: magnesium Cl slow-release 64mg tablet PO PRN (10:01)
[2019-06-17] MEDS: piperacillin/tazo 4.5gm/100ml 100 ML IV SCH ×2 (10:02→16:46)
[2019-06-17] MEDS: folic acid 1mg tablet PO SCH (10:02)
[2019-06-17] MEDS: cyanocobalamin 500mcg tablet PO SCH (10:04)
[2019-06-17 11:00] VITALS: BP 98/59
[2019-06-17 15:00] VITALS: BP 110/60
[2019-06-17 18:30] VITALS: BP 117/77
--- NOTE | 2019-06-17 18:30 | NUR ---
Patient in room PCU 3022. I have received report from Leticia Henderson RN and had the opportunity to ask questions and assume patient care.
--- NOTE | 2019-06-17 18:33 | NUR ---
Problems reprioritized. Patient report given, questions answered & plan of care reviewed with Remigio RN. All patient needs met at this time.
[2019-06-17] MEDS: carVEDilol 3.125mg tablet PO SCH (20:00)
--- NOTE | 2019-06-17 20:00 | NUR ---
COREG HELD SBP 99
[2019-06-17 22:00] VITALS: BP 101/68
[2019-06-18] MEDS: normal saline 1000ml 1,000 ML IV SCH ×2 (00:17→19:26)
[2019-06-18] MEDS: piperacillin/tazo 4.5gm/100ml 100 ML IV SCH ×3 (00:17→16:23)
[2019-06-18 02:30] VITALS: BP 107/68
[2019-06-18 06:00] VITALS: BP 95/55
--- NOTE | 2019-06-18 06:18 | NUR ---
Problems reprioritized. Patient report given, questions answered & plan of care reviewed with Leticia Henderson RN.
--- NOTE | 2019-06-18 06:29 | NUR ---
Patient in room PCU 3022. I have received report from ROJAS Flood and had the opportunity to ask questions and assume patient care.
[2019-06-18 06:42] LABS: EOSINOPHILS # (AUTO) 0.1 X10'3 (0-0.9); HEMOGLOBIN 8.5 g/dl (14.0-17.9); MEAN PLATELET VOLUME 8.3 FL (7.4-10.4); MONOCYTES # (AUTO) 1.5 X10'3 (0-0.9); WHITE BLOOD COUNT 5.6 X10'3 (4.5-11.0)
[2019-06-18 06:45] LABS: BASOPHILS # (AUTO) 0.1 X10'3 (0-0.2); BASOPHILS % (AUTO) 0.9 % (0-1); EOSINOPHILS % (AUTO) 1.7 % (0-6); HEMATOCRIT 26.3 % (42.0-52.0); LYMPHOCYTES # (AUTO) 1.3 X10'3 (1.1-4.8); LYMPHOCYTES % (AUTO) 22.5 % (21-51); MEAN CORPUSCULAR HEMOGLOBIN 28.4 PG (27.0-31.0); MEAN CORPUSCULAR HGB CONC 32.4 g/dL (33.0-36.5); MEAN CORPUSCULAR VOLUME 87.4 FL (78-98); MONOCYTES % (AUTO) 26.2 % (2-12); NEUTROPHILS # (AUTO) 2.7 X10'3 (1.8-7.7); NEUTROPHILS % (AUTO) 48.7 % (42-75); PLATELET COUNT 205 X10'3 (140-440); RED CELL DISTRIBUTION WIDTH 19.9 % (11.5-14.5)
[2019-06-18 06:54] LABS: ALANINE AMINOTRANSFERASE 38 U/L (12-78); ALBUMIN 1.5 G/DL (3.4-5.0); ALBUMIN/GLOBULIN RATIO 0.3 (1.1-1.5); ALKALINE PHOSPHATASE 220 IU/L (46-116); ANION GAP 3 (8-16); ASPARTATE AMINO TRANSFERASE 62 U/L (10-37); BILIRUBIN,TOTAL 0.7 MG/DL (0.1-1.0); BLOOD UREA NITROGEN 6 MG/DL (7-18); CALCIUM 8.1 MG/DL (8.5-10.1); CHLORIDE 103 MMOL/L (99-107); CREATININE 0.67 MG/DL (0.60-1.10); GLUCOSE 83 MG/DL (70-104); MAGNESIUM 1.2 MG/DL (1.5-2.4); POTASSIUM 3.2 MMOL/L (3.5-5.1); SODIUM 138 MMOL/L (135-145); TOTAL PROTEIN 5.8 G/DL (6.4-8.2); eGFR > 90 ML/MIN
[2019-06-18 07:59] LABS: TOTAL CELLS COUNTED 100
[2019-06-18 08:00] LABS: ANISOCYTOSIS 2+; HYPOCHROMASIA 1+; PLATELET ESTIMATE NORMAL; POLYCHROMASIA FEW; STOMATOCYTES 2+
[2019-06-18] MEDS: carVEDilol 3.125mg tablet PO SCH ×2 (08:00→20:11)
[2019-06-18] MEDS: K and/or MAG REPLACEMENT MC SCH ×2 (08:00→20:00)
--- NOTE | 2019-06-18 08:35 | NUR ---
Patient's heart rate went into the 170's with a small 4-6 beat bursts of V-Tach. Spoke to Dr Hernandez, he's aware and will talk to plastic frame inserter. Received new order to add electrolyte replacement. Dr Hernandez also informed me he is going to order a Digoxin level 6 hours after I give patient's dose of Digoxin.
[2019-06-18] MEDS: digoxin 250mcg (0.25mg) tablet PO SCH (08:44)
[2019-06-18] MEDS: cyanocobalamin 500mcg tablet PO SCH (08:48)
[2019-06-18] MEDS: folic acid 1mg tablet PO SCH (08:48)
[2019-06-18] MEDS: carvedilol 6.25mg tablet PO SCH ×2 (08:48→20:11)
[2019-06-18] MEDS: heparin, porcine 5000 units/ml vial SQ SCH ×2 (08:48→20:08)
[2019-06-18] MEDS: multivitamins, therapeutics tablet PO SCH (08:48)
[2019-06-18] MEDS: thiamine 100mg tablet PO SCH ×2 (08:48→20:11)
[2019-06-18] MEDS ORDERED: magnesium 4gm in 100ml NS 100 ML IV PRN (09:15)
[2019-06-18] MEDS ORDERED: potassium CL 10mEq/100ml bag 100 ML IV PRN ×2 (09:15)
[2019-06-18] MEDS ORDERED: potassium Cl 20 mEq SR tablet PO PRN (09:15)
[2019-06-18] MEDS ORDERED: magnesium 2GM in 50ml NS 50 ML IV PRN (09:15)
[2019-06-18] MEDS: magnesium Cl slow-release 64mg tablet PO PRN ×2 (10:08→23:18)
[2019-06-18] MEDS: potassium Cl 20 mEq SR tablet PO PRN ×3 (10:08→23:17)
[2019-06-18 11:00] VITALS: BP 110/92
[2019-06-18 15:00] VITALS: BP 105/63
[2019-06-18] MEDS ORDERED: digoxin 250mcg (0.25mg) tablet PO ONE ×2 (16:25→16:35)
[2019-06-18 18:00] VITALS: BP 126/80
--- NOTE | 2019-06-18 18:12 | NUR ---
Problems reprioritized. Patient report given, questions answered & plan of care reviewed with Remigio RN. All patient needs met at this time.
--- NOTE | 2019-06-18 18:30 | NUR ---
Patient in room PCU 3022. I have received report from Leticia Henderson RN and had the opportunity to ask questions and assume patient care.
[2019-06-18] MEDS: lactobacillus rhamnosus 10,000 MMU CELLS/CAPSULE PO SCH (20:12)
[2019-06-18 22:00] VITALS: BP 123/68
[2019-06-19] MEDS: piperacillin/tazo 4.5gm/100ml 100 ML IV SCH ×2 (00:31→07:26)
[2019-06-19 02:00] VITALS: BP 100/63
--- NOTE | 2019-06-19 02:27 | NUR ---
Problems reprioritized. Patient report given, questions answered & plan of care reviewed with Anjelica XIE.
[2019-06-19 06:00] VITALS: BP 119/95
[2019-06-19 06:05] LABS: BASOPHILS # (AUTO) 0.1 X10'3 (0-0.2); BASOPHILS % (AUTO) 1.6 % (0-1); EOSINOPHILS # (AUTO) 0.1 X10'3 (0-0.9); EOSINOPHILS % (AUTO) 1.8 % (0-6); HEMATOCRIT 27.2 % (42.0-52.0); HEMOGLOBIN 8.8 g/dl (14.0-17.9); LYMPHOCYTES # (AUTO) 1.1 X10'3 (1.1-4.8); LYMPHOCYTES % (AUTO) 16.9 % (21-51); MEAN CORPUSCULAR HEMOGLOBIN 28.4 PG (27.0-31.0); MEAN CORPUSCULAR HGB CONC 32.2 g/dL (33.0-36.5); MONOCYTES # (AUTO) 1.2 X10'3 (0-0.9); MONOCYTES % (AUTO) 18.6 % (2-12); NEUTROPHILS % (AUTO) 61.1 % (42-75); PLATELET COUNT 242 X10'3 (140-440); RED BLOOD COUNT 3.09 X10'6 (4.70-6.10); RED CELL DISTRIBUTION WIDTH 20.6 % (11.5-14.5); WHITE BLOOD COUNT 6.6 X10'3 (4.5-11.0)
--- NOTE | 2019-06-19 06:19 | NUR ---
Problems reprioritized. Patient report given, questions answered & plan of care reviewed with Estefania XIE.
[2019-06-19 06:28] LABS: ALANINE AMINOTRANSFERASE 53 U/L (12-78); ALBUMIN 1.7 G/DL (3.4-5.0); ALBUMIN/GLOBULIN RATIO 0.4 (1.1-1.5); ALKALINE PHOSPHATASE 256 IU/L (46-116); ANION GAP 3 (8-16); ASPARTATE AMINO TRANSFERASE 85 U/L (10-37); BILIRUBIN,TOTAL 0.5 MG/DL (0.1-1.0); BLOOD UREA NITROGEN 6 MG/DL (7-18); BUN/CREATININE RATIO 7.9 (5.4-32.0); CALCIUM 8.6 MG/DL (8.5-10.1); CHLORIDE 103 MMOL/L (99-107); CREATININE 0.76 MG/DL (0.60-1.10); GLUCOSE 107 MG/DL (70-104); POTASSIUM 4.1 MMOL/L (3.5-5.1); SODIUM 135 MMOL/L (135-145); TOTAL PROTEIN 6.3 G/DL (6.4-8.2); eGFR > 90 ML/MIN
[2019-06-19 06:55] LABS: ANISOCYTOSIS 3+; HYPOCHROMASIA 1+; NUCLEATED RED BLOOD CELLS 2 /100WBC (0-0); PLATELET ESTIMATE NORMAL; POLYCHROMASIA FEW; STOMATOCYTES 2+; TOTAL CELLS COUNTED 100
[2019-06-19 06:56] LABS: MAGNESIUM 1.2 MG/DL (1.5-2.4)
[2019-06-19] MEDS: cyanocobalamin 500mcg tablet PO SCH (07:26)
[2019-06-19] MEDS: lactobacillus rhamnosus 10,000 MMU CELLS/CAPSULE PO SCH (07:26)
[2019-06-19] MEDS: thiamine 100mg tablet PO SCH (07:26)
[2019-06-19] MEDS: carvedilol 6.25mg tablet PO SCH (07:26)
[2019-06-19] MEDS: multivitamins, therapeutics tablet PO SCH (07:26)
[2019-06-19] MEDS: folic acid 1mg tablet PO SCH (07:26)
[2019-06-19] MEDS: heparin, porcine 5000 units/ml vial SQ SCH (07:27)
[2019-06-19] MEDS: carVEDilol 3.125mg tablet PO SCH (08:00)
[2019-06-19] MEDS: K and/or MAG REPLACEMENT MC SCH (08:00)
[2019-06-19] MEDS ORDERED: digoxin 250mcg (0.25mg) tablet PO SCH (08:00)
[2019-06-19] MEDS: normal saline 1000ml 1,000 ML IV SCH (08:46)
--- NOTE | 2019-06-19 08:50 | NUR ---
SPOKE WITH DR. RIGGS ABOUT MAG OF 1.2 INSTRUCTED TO GIVE 4G OF IV MAG ONLY, PATIENT WILL LIKELY GO TO REHAB TODAY
[2019-06-19 11:00] VITALS: BP 101/66
[2019-06-19] MEDS ORDERED: AMOX-117 PO (11:24)
[2019-06-19] MEDS ORDERED: LAN0.25T PO (11:24)
[2019-06-19] MEDS ORDERED: CARV-50 PO (11:24)
--- NOTE | 2019-06-19 13:15 | NUR ---
GAVE REPORT TO [facility] NURSE NAMED ZULEMA. PATIENT TO BE PICKED UP AT 1330 BY HOWIE CARGO. PICS TAKEN OF WOUNDS PRIOR TO TRANSFER- LEFT TOES, RIGHT HEEL, RIGHT VALLADARES+FRONT OF ANKLE, COCCYX. NURSE RECEIVING REPORT AT [facility] MADE AWARE OF WOUNDS AND PATIENT'S HISTORY/PHYSICAL. DENIED ANY QUESTIONS OR CONCERNS. PATIENT AWARE OF HIS TRANSFER AND WIND TURBINE MECHANIC TIME.
== END 2019-06-19 13:30 | DRG 871 ==
LOC: ER 18:22 → ED HOLD 20:57 → PCU 3S 06-12 00:39
PROVIDERS: ADMIT Internal Medicine; ATTEND Family Medicine
DX: A41.9 Sepsis, unspecified organism (principal); J18.9 Pneumonia, unspecified organism; N17.0 Acute kidney failure with tubular necrosis; F10.239 Alcohol dependence with withdrawal, unspecified; I48.21 Permanent atrial fibrillation; I50.32 Chronic diastolic (congestive) heart failure; D63.8 Anemia in other chronic diseases classified elsewhere; E03.9 Hypothyroidism, unspecified; E66.01 Morbid (severe) obesity due to excess calories; E78.5 Hyperlipidemia, unspecified; E86.0 Dehydration; G47.33 Obstructive sleep apnea (adult) (pediatric); I11.0 Hypertensive heart disease with heart failure; L89.151 Pressure ulcer of sacral region, stage 1
CPT/HCPCS: 36415; 71045; 71046; 71260; 80053; 80162; 81003; 82272; 82607; 83540; 83550; 83605; 83735; 84145; 84484; 85025; 87040; 87081; 93005; 97110; 97116; 97162; 97530; G0378; J0696; J1160; J1644; J1885; J2543; J3411; J3475; J3480; J3490; J7030; J7040; Q9967

== ENCOUNTER 2020-12-25 11:28 | Emergency (ER) | payer BC ==
[~2020-12-25] VITALS: Ht 200.7 cm; Wt 113.6 kg
[~2020-12-25 11:28] MED LIST changes: +LAN0.25T PO; -PANT40TA4 PO; +PANT40TA54 PO
[2020-12-25 12:14] VITALS: BP 162/84
[2020-12-25] MEDS ORDERED: SULF1TAB45 PO (12:26)
[2020-12-25] MEDS ORDERED: CEPH250T PO (12:26)
== END 2020-12-25 13:33 | disposition home or self-care (01) ==
LOC: ER 11:29
DX: S91.301A Unspecified open wound, right foot, initial encounter (principal); I48.91 Unspecified atrial fibrillation; I10 Essential (primary) hypertension; E03.9 Hypothyroidism, unspecified; Z72.89 Other problems related to lifestyle; Z79.2 Long term (current) use of antibiotics; Z79.899 Other long term (current) drug therapy; X58.XXXA Exposure to other specified factors, initial encounter; Y93.89 Activity, other specified; Y92.89 Other specified places as the place of occurrence of the external cause; Y99.8 Other external cause status
CPT/HCPCS: 73630; 99283

== ENCOUNTER 2021-01-18 10:25 | Emergency (ER) | payer BC ==
[~2021-01-18] VITALS: Ht 177.8 cm; Wt 104.5 kg
[2021-01-18 11:35] LABS: BASOPHILS # (AUTO) 0.1 X10'3 (0-0.2); BASOPHILS % (AUTO) 1.2 % (0-1); EOSINOPHILS % (AUTO) 0 % (0-6); HEMATOCRIT 32.9 % (42.0-52.0); HEMOGLOBIN 11.3 g/dl (14.0-17.9); LYMPHOCYTES # (AUTO) 0.8 X10'3 (1.1-4.8); LYMPHOCYTES % (AUTO) 11.4 % (21-51); MEAN CORPUSCULAR HEMOGLOBIN 30.7 PG (27.0-31.0); MEAN CORPUSCULAR HGB CONC 34.5 g/dL (33.0-36.5); MEAN CORPUSCULAR VOLUME 89.2 FL (78-98); MEAN PLATELET VOLUME 8.4 FL (7.4-10.4); MONOCYTES # (AUTO) 0.9 X10'3 (0-0.9); MONOCYTES % (AUTO) 13.2 % (2-12); NEUTROPHILS # (AUTO) 5.3 X10'3 (1.8-7.7); NEUTROPHILS % (AUTO) 74.2 % (42-75); PLATELET COUNT 199 X10'3 (140-440); RED BLOOD COUNT 3.68 X10'6 (4.70-6.10); RED CELL DISTRIBUTION WIDTH 17.6 % (11.5-14.5); WHITE BLOOD COUNT 7.1 X10'3 (4.5-11.0)
[2021-01-18] MEDS ORDERED: normal saline 1000ml 1,000 ML IV ONE ×2 (11:40→13:00)
[2021-01-18 11:59] LABS: TOTAL PROTEIN 8.2 G/DL (6.4-8.2)
[2021-01-18 12:02] LABS: ALANINE AMINOTRANSFERASE 38 U/L (12-78); ALBUMIN 2.8 G/DL (3.4-5.0); ALBUMIN/GLOBULIN RATIO 0.5 (1.1-1.5); ALKALINE PHOSPHATASE 226 IU/L (46-116); ANION GAP 14 (8-16); ASPARTATE AMINO TRANSFERASE 128 U/L (10-37); BILIRUBIN,TOTAL 3.8 MG/DL (0.1-1.0); BLOOD UREA NITROGEN 25 MG/DL (7-18); CALCIUM 7.9 MG/DL (8.5-10.1); CHLORIDE 90 MMOL/L (99-107); CREATININE 1.79 MG/DL (0.60-1.10); GLUCOSE 132 MG/DL (70-104); SODIUM 135 MMOL/L (135-145); eGFR 40 ML/MIN
[2021-01-18] MEDS ORDERED: potassium Cl 20 mEq SR tablet PO STA (13:30)
[2021-01-18] MEDS ORDERED: digoxin 250mcg (0.25mg) tablet PO ONE (13:35)
[2021-01-18] MEDS ORDERED: clopidogrel 300mg tablet PO ONE (13:35)
[2021-01-18 13:49] LABS: URINE AMPHETAMINE SCREEN NEGATIVE (Neg); URINE BARBITUATE SCREEN NEGATIVE (Neg); URINE BENZODIAZEPINES SCREEN NEGATIVE (Neg); URINE CANNABINOID SCREEN NEGATIVE (Neg); URINE COCAINE SCREEN NEGATIVE (Neg); URINE METHADONE SCREEN NEGATIVE (Neg); URINE OPIATE SCREEN NEGATIVE (Neg); URINE PHENCYCLIDINE SCREEN NEGATIVE (Neg)
[2021-01-18 13:56] LABS: CLARITY,URINE CLOUDY (Clear); COLOR,URINE ORANGE (Yellow); UA COLLECTION TYPE CLN CATCH MIDSTREAM
[2021-01-18 14:06] LABS: BACTERIA,URINE FEW /HPF (Neg); FINE GRANULAR CAST 0-3 /LPF (NEGATIVE); HYALINE CASTS 0-3 /LPF (NEGATIVE); MUCUS STRANDS MANY /LPF (Neg); RBC,URINE NONE SEEN /HPF (0-2); RENAL CELLS, URINE MODERATE /HPF; SQUAMOUS EPITHELIAL CELL,UR FEW /LPF (FEW); TRANSITIONAL EPI CELLS,URINE FEW /HPF
[2021-01-18 14:10] LABS: CELLULAR CAST 0-4 /LPF (NEGATIVE)
[2021-01-18 14:15] VITALS: BP 100/69
[2021-01-18 14:16] LABS: AMORPHOUS PHOSPHATES 1+
--- NOTE | 2021-01-18 14:52 | NUR ---
relieving RN for break, pt amb with steady gait without assist around the ER
[2021-01-23] MEDS ORDERED: LIDOcaine 2% 5ml jelly ONE (13:05)
== END 2021-01-18 16:00 | disposition home or self-care (01) ==
LOC: ER 10:25
DX: E87.6 Hypokalemia (principal); E86.0 Dehydration; I48.91 Unspecified atrial fibrillation; R42 Dizziness and giddiness; I10 Essential (primary) hypertension; E03.9 Hypothyroidism, unspecified; Z91.14 Patient's other noncompliance with medication regimen; Z72.89 Other problems related to lifestyle; Z79.899 Other long term (current) drug therapy
CPT/HCPCS: 36415; 71045; 80053; 80162; 80305; 81001; 83605; 84145; 84484; 85025; 87040; 87088; 93005; 96360; 96361; 99285; J7030; 87077; 87186